=== PATIENT | female | born 1960 | race Hispanic/Latino ===

== ENCOUNTER 2018-05-06 16:26 | Inpatient (IN) | payer MEDICARE, OTHER ==
[2018-05-06 16:26] VITALS: BMI 27.6
--- NOTE | 2018-05-06 16:41 | ED PDOC ---
Arrival/HPI <Marco Carrasquillo - Last Filed: 05/06/18 21:00> - General Historian: Patient, EMS - History of Present Illness Narrative History of Present Illness (Text): 05/06/18 16:35 57 y/o female, pmh including shingles, post menopausal, psychiatric history incl uding anxiety/depression/schizoaffective, nkda, biba sister for worsening of anxiety/depression for the past couple months. Pt. stated that she is feeling very anxious and depress, no energy to do anything or clean her house, sister is very concern so she bring her to the ER for evaluation. Pt. has no homocidal or suicidal ideation, no auditory or visual hallucination, no night sweat, no rash, no dizziness, no other medical or psychological complaints. <Diallo Amaya - Last Filed: 05/06/18 21:32> - General Time Seen by Provider: 05/06/18 16:28 Past Medical History - Provider Review Nursing Documentation Reviewed: Yes - Infectious Disease Hx of Infectious Diseases: None - Tetanus Immunization Tetanus Immunization: Unknown - Past Medical History Past Medical History: No Previous - Cardiac Hx Pacemaker: No - Pulmonary Hx Respiratory Disorders: No Hx Asthma: No Hx Bronchitis: No Hx Chronic Obstructive Pulmonary Disease (COPD): No Hx Emphysema: No Hx Pneumonia: No Hx Respiratory Aspiration: No Hx Respiratory Tract Infection: No Hx Sleep Apnea: No Hx Tuberculosis: No - Neurological Hx Neurological Disorder: No Hx Alzheimer's Disease: No HX Cerebrovascular Accident: No Hx Dementia: No Hx Dizziness: No Hx Meningitis: No Hx Migraine: No Hx Parkinson's Disease: No Hx Seizures: No Hx Transient Ischemic Attacks (TIA): No - HEENT Hx HEENT Disorder: No Hx Blind: No Hx Cataracts: No Hx Deafness: No Hx Difficulty Chewing: No Hx Epistaxis: No Hx Glaucoma: No Hx Macular Degeneration: No - Renal Hx Renal Disorder: No Hx Dialysis: No Hx Kidney Stones: No Hx Neurogenic Bladder: No Hx Pyelonephritis: No Hx Renal Cancer: No Hx Renal Failure: No - Endocrine/Metabolic Hx Endocrine Disorders: No Hx Adrenal Cancer: No Hx Diabetes Insipidus: No Hx Diabetes Mellitus Type 1: No Hx Diabetes Mellitus Type 2: No Hx Hyperthyroidism: No Hx Hypothyroidism: No Hx Systemic Lupus Erythematosus: No - Hematological/Oncological Hx Blood Transfusions: No - Integumentary Hx Dermatological Disorder: No Hx Basal Cell Carcinoma: No Hx Eczema: No Hx Melanoma: No Hx Psoriasis: No Hx Squamous Cell Carcinoma: No - Musculoskeletal/Rheumatological Hx Musculoskeletal Disorders: No - Gastrointestinal Hx Gastrointestinal Disorders: No Hx Colostomy: No Hx Crohn's Disease: No Hx Diverticulitis: No Hx Gall Bladder Disease: Yes (stones in the gallbladder and had surgery) Hx Gastroesophageal Reflux: No Hx Gastrointestinal Ulcer: No Hx Ileostomy: No Hx Liver Failure: No Hx Pancreatitis: No HX Swallowing Problems: No - Genitourinary/Gynecological Hx Genitourinary Disorders: No Hx Hematuria: No Hx Incontinence: No Hx Prostate Problems: No Hx Reproductive Disorders: No Hx Sexually Transmitted Diseases: No Hx Urinary Tract Infection: No - Psychiatric Hx Emotional Abuse: No Hx Physical Abuse: No Hx Substance Use: No - Surgical History Hx Amputation: No Hx Appendectomy: No Hx Cardiac Catheterization: No Hx Cholecystectomy: Yes Hx Coronary Stent: No Hx Gastric Bypass Surgery: No Hx Hysterectomy: Yes (oopherectomy) Hx Inguinal Hernia Repair: No Hx Joint Replacement: No Hx Kidney Transplant: No Hx Liver Transplant: No Hx Mastectomy: No Hx Musculoskeletal Surgery: No Hx Open Heart Surgery: No Hx Orthopedic Surgery: No Hx Splenectomy: No Hx Valve Replacement: No - Anesthesia Hx Anesthesia Reactions: Yes ("SKIN TURNED RED") Hx Malignant Hyperthermia: No - Suicidal Assessment Feels Threatened In Home Enviroment: No <Diallo Amaya - Last Filed: 05/06/18 21:32> Family/Social History - Physician Review Nursing Documentation Reviewed: Yes Family/Social History: Unknown Family HX Smoking Status: Never Smoked Hx Alcohol Use: Yes (OCCASSIONAL) Hx Substance Use: No Hx Substance Use Treatment: No <Diallo Amaya - Last Filed: 05/06/18 21:32> Allergies/Home Meds <Marco Carrasquillo - Last Filed: 05/06/18 21:00> <Diallo Amaya - Last Filed: 05/06/18 21:32> Allergies/Adverse Reactions: Allergies No Known Allergies Allergy (Verified 05/06/18 16:57) Home Medications: Home Meds Medication Instructions Recorded Confirmed ALPRAZolam [Xanax] 1 tab PO TID 02/28/16 03/04/16 Alprazolam [Xanax] 0.5 mg PO HS 02/28/16 03/04/16 Benztropine [Cogentin] 1 tab PO BID 02/28/16 03/04/16 Cholecalciferol [Vitamin D 1000 IU] 1 tab PO DAILY 02/28/16 03/04/16 Methylphenidate [Ritalin] 1 tab PO BID 02/28/16 03/04/16 Multivit-Min/Iron/Folic/Lutein 1 tab PO DAILY 02/28/16 03/04/16 [Centrum Silver Women Tablet] Risperidone [Risperdal] 1 tab PO BID 02/28/16 03/04/16 fluvoxaMINE [Luvox] 1 tab PO Q12 02/28/16 03/04/16 Review of Systems - Review of Systems Constitutional: absent: Fatigue, Fevers Eyes: absent: Vision Changes ENT: absent: Hearing Changes Respiratory: absent: SOB Cardiovascular: absent: Chest Pain Gastrointestinal: absent: Abdominal Pain, Nausea, Vomiting Genitourinary Female: absent: Vaginal Bleeding Musculoskeletal: absent: Arthralgias, Back Pain Skin: absent: Rash, Pruritis Neurological: absent: Headache, Dizziness Hemo/Lymphatic: absent: Adenopathy Psychiatric: Anxiety, Depression. absent: Suicidal Ideation <Diallo Amaya - Last Filed: 05/06/18 21:32> Physical Exam Vital Signs Temp Pulse Resp BP Pulse Ox 05/06/18 16:52 97.7 F 94 H 18 136/77 95 <Marco Carrasquillo - Last Filed: 05/06/18 21:00> Vital Signs Reviewed: Yes Temperature: Afebrile Blood Pressure: Normal Pulse: Regular Respiratory Rate: Normal Appearance: Positive for: Well-Appearing, Non-Toxic, Comfortable Pain Distress: None Mental Status: Positive for: Alert and Oriented X 3 - Systems Exam Head: Present: Atraumatic, Normocephalic Pupils: Present: PERRL Extroacular Muscles: Present: EOMI Conjunctiva: Present: Normal Mouth: Present: Moist Mucous Membranes Neck: Present: Normal Range of Motion Respiratory/Chest: Present: Clear to Auscultation, Good Air Exchange. No: Respiratory Distress, Accessory Muscle Use Cardiovascular: Present: Regular Rate and Rhythm, Normal S1, S2. No: Murmurs Abdomen: No: Tenderness, Distention, Peritoneal Signs Back: Present: Normal Inspection Upper Extremity: Present: Normal Inspection. No: Cyanosis, Edema Lower Extremity: Present: Normal Inspection. No: Edema Neurological: Present: GCS=15, CN II-XII Intact, Speech Normal Skin: Present: Warm, Dry, Normal Color. No: Rashes Psychiatric: Present: Alert, Oriented x 3, Normal Concentration, Anxious, Depressed Mood <Diallo Amaya - Last Filed: 05/06/18 21:32> Medical Decision Making - Lab Interpretations Lab Results: 05/06/18 17:23 05/06/18 17:23 Lab Results 05/06/18 18:47: Urine Color Light yellow, Urine Appearance Clear, Urine pH 6.0, Ur Specific [place] 1.025, Urine Protein 30 H, Urine Glucose (UA) Negative, Urine Ketones Trace H, Urine Blood Negative, Urine Nitrate Negative, Urine Bilirubin Negative, Urine Urobilinogen 0.2, Ur Leukocyte Esterase Small H, Urine RBC Negative, Urine WBC 1 - 3, Ur Epithelial Cells 0 - 2, Urine Bacteria Neg 05/06/18 18:47: Urine Opiates Screen Negative, Urine Methadone Screen Negative, Ur Barbiturates Screen Negative, Ur Phencyclidine Scrn Negative, Ur Amphetamines Screen Negative, U Benzodiazepines Scrn Negative, U Oth Cocaine Metabols Negative, U Cannabinoids Screen Negative 05/06/18 17:23: WBC 8.1, RBC 5.00, Hgb 14.3, Hct 40.7, MCV 81.4, MCH 28.6, MCHC 35.1, RDW 12.6, Plt Count 202, MPV 9.7, Gran % 73.9 H, Lymph % (Auto) 18.2 L, [place] % (Auto) 6.1 H, Eos % (Auto) 1.6, Baso % (Auto) 0.2, Gran # 5.97, Lymph # (Auto) 1.5, [place] # (Auto) 0.5, Eos # (Auto) 0.1, Baso # (Auto) 0.02 05/06/18 17:23: Alcohol, Quantitative < 10 05/06/18 17:23: Sodium 141, Potassium 3.4 L, Chloride 106, Carbon Dioxide 22, Anion Gap 16, BUN 12, Creatinine 0.7, Est GFR ( Amer) > 60, Est GFR (Non- Af Amer) > 60, Random Glucose 125 H, Calcium 10.0, Total Bilirubin 0.5, AST 22, ALT 26, Alkaline Phosphatase 88, Total Protein 8.0, Albumin 4.6, Globulin 3.4, A lbumin/Globulin Ratio 1.4 05/06/18 17:23: Salicylates < 1 L, Acetaminophen < 10.0 L - RAD Interpretation Radiology Orders: 05/06/18 17:06 CHEST PORTABLE [RAD] Stat - Medication Orders Current Medication Orders: Discontinued Medications Nitrofurantoin Macrocrystals (Macrobid) 100 mg PO STAT STA; Protocol Stop: 05/06/18 18:54 Last Admin: 05/06/18 19:42 Dose: 100 mg Potassium Chloride (K-Dur 20 Meq Er Tab) 20 meq PO STAT STA Stop: 05/06/18 17:44 Last Admin: 05/06/18 18:14 Dose: 20 meq <Marco Carrasquillo - Last Filed: 05/06/18 21:00> ED Course and Treatment: 05/06/18 17:14 -Labs/ua/uds -ekg -cxr -PES paged -Observe and reassess 05/06/18 17:57 -EKG NSR @ 81 BPM, no ST elevation or depression, no T wave inversion. -Chest xray show No active disease. -Labs show no acute findings except potassium 3.4 (potassium chloride 20meq po ordered) -UA ordered and pending result -UDS ordered and pending result -Alcohol/acetaminophen/salicylate acid within normal limit. 05/06/18 18:54 -UA show +UTI, macrobid ordered 05/06/18 19:51 -UDS show no acute findings -Pt. is medically clear and stable for psychiatric evaluation. 05/06/18 21:31 -Pt. evaluated by the PES, recommend admission to Dr. Jonathan Valadez. - RAD Interpretation Radiology Orders: Date of service: 05/06/2018 HISTORY: medical clearance COMPARISON: Chest radiograph dated 09/09/2013. FINDINGS: LUNGS: No active pulmonary disease. PLEURA: No significant pleural effusion identified, no pneumothorax apparent. CARDIOVASCULAR: Normal. OSSEOUS STRUCTURES: Unchanged. VISUALIZED UPPER ABDOMEN: Right upper quadrant surgical clips. OTHER FINDINGS: None. IMPRESSION: No active disease. Telecommunications Operator: Radiologist - EKG Interpretation EKG Interpretation (Text): 05/06/18 17:29 -NSR @ 81 BPM, no ST elevation or depression, no T wave inversion. Interpreted by ED Physician: Yes Type: 12 lead EKG <Diallo Amaya - Last Filed: 05/06/18 21:32> - PA / WASTE COLLECTION DRIVER / Resident Statement EVELIA has examined the patient and agrees with the treatment plan. <Marco Carrasquillo - Last Filed: 05/06/18 21:00> - PA / WASTE COLLECTION DRIVER / Resident Statement EVELIA has reviewed & agrees with the documentation as recorded. EVELIA has examined the patient and agrees with the treatment plan. <Diallo Amaya - Last Filed: 05/06/18 21:32> Disposition/Present on Arrival <Marco Carrasquillo - Last Filed: 05/06/18 21:00> - Present on Arrival Any Indicators Present on Arrival: No History of DVT/PE: No History of Uncontrolled Diabetes: No Urinary Catheter: No History of Decub. Ulcer: No History Surgical Site Infection Following: None - Disposition Have Diagnosis and Disposition been Completed?: Yes Disposition Time: 17:46 Patient Plan: Admission <Diallo Amaya - Last Filed: 05/06/18 21:32> - Disposition Diagnosis: Hypokalemia, UTI (urinary tract infection), Major depression Disposition: HOSPITALIZED Patient Problems: Current Active Problems Problem Status Onset Hypokalemia Acute UTI (urinary tract infection) Acute Condition: STABLE Referrals: Kerline Raymundo MD [Primary Care Provider] - Follow up with primary
[2018-05-06 17:27] LABS: BASO # 0.02 K/mm3 (0.0-2.0); BASO % 0.2 % (0.0-3.0); EOS # 0.1 (0.0-0.7); EOS % 1.6 % (1.5-5.0); GRAN # 5.97 (1.4-6.5); GRAN % 73.9 % (50.0-68.0); HEMOGLOBIN 14.3 g/dL (12.0-16.0); LYMPH # 1.5 (1.2-3.4); LYMPH % 18.2 % (22.0-35.0); MEAN CELL VOLUME 81.4 fl (80.0-105.0); MEAN CORPUSCULAR HEMOGLOBIN 28.6 pg (25.0-35.0); MEAN CORPUSCULAR HGB CONC 35.1 g/dl (31.0-37.0); MEAN PLATELET VOLUME 9.7 fl (7.0-11.0); MONO # 0.5 (0.1-0.6); MONO % 6.1 % (1.0-6.0); RED CELL DISTRIBUTION WIDTH 12.6 % (11.5-14.5); WHITE BLOOD COUNT 8.1 10^3/ul (4.5-11.0)
[2018-05-06 17:39] LABS: ACETAMINOPHEN < 10.0 ug/ml (10.0-20.0); ALB/GLOB RATIO 1.4 (1.1-1.8); ALBUMIN 4.6 g/dL (3.0-4.8); ALT/SGPT 26 U/L (7-56); AST/SGOT 22 U/L (14-36); BLOOD UREA NITROGEN 12 mg/dL (7-21); GFR NON-AFRICAN AMERICAN > 60; SALICYLATE < 1 mg/dL (2.0-20.0)
--- NOTE | 2018-05-06 17:41 | RAD ---
Date of service: 05/06/2018 HISTORY: medical clearance COMPARISON: Chest radiograph dated 09/09/2013. FINDINGS: LUNGS: No active pulmonary disease. PLEURA: No significant pleural effusion identified, no pneumothorax apparent. CARDIOVASCULAR: Normal. OSSEOUS STRUCTURES: Unchanged. VISUALIZED UPPER ABDOMEN: Right upper quadrant surgical clips. OTHER FINDINGS: None. IMPRESSION: No active disease.
[2018-05-06] MEDS ORDERED: Potassium Chloride 20 mEq ER Tab PO STA (17:43)
[2018-05-06 18:53] LABS: URINE APPEARANCE CLEAR (CLEAR); URINE BILIRUBIN NEGATIVE (NEGATIVE); URINE BLOOD NEGATIVE (NEGATIVE); URINE COLOR LIGHT YELLOW (YELLOW); URINE GLUCOSE (UA) NEGATIVE (NEGATIVE); URINE LEUKOCYTE ESTERASE SMALL Leu/uL (NEGATIVE); URINE PROTEIN 30 mg/dL (<30 mg/dL); URINE UROBILINOGEN 0.2 E.U./dL (<1 E.U./dL)
[2018-05-06 18:59] LABS: URINE BACTERIA NEG (NEG); URINE EPITHELIAL CELLS 0 - 2 /hpf (0-5); URINE RBC NEGATIVE /hpf (0-2)
[2018-05-06 19:38] LABS: BARBITURATES, UR NEGATIVE (NEGATIVE); BENZODIAZEPINES, UR NEGATIVE (NEGATIVE); OPIATES, UR NEGATIVE (NEGATIVE); PHENCYCLIDINE, UR NEGATIVE (NEGATIVE)
[2018-05-07 00:08] VITALS: O2SAT 96
[2018-05-07] MEDS ORDERED: Alum-Mag Hydrox-Simethicone Susp (30 mL) PO PRN (03:38)
[2018-05-07] MEDS ORDERED: Magnesium Hydroxide Susp 30 ml UD PO PRN (03:46)
--- NOTE | 2018-05-07 04:49 | PCM.BM ---
<Betty,Kathleen - Last Filed: 05/07/18 04:46> Treatment Plan Problems - Problems identified on initial assessmt medication non-compliance Date Initiated: 05/07/18 Time Initiated: 00:30 Assessment reference: NA Status: Active Priority: 1 ineffective coping Date Initiated: 05/07/18 Time Initiated: 00:30 Assessment reference: NA Status: Active Priority: 2 social isolation Date Initiated: 05/07/18 Time Initiated: 00:30 Assessment reference: NA Status: Active Priority: 3 Self-care Deficit Date Initiated: 05/07/18 Time Initiated: 00:30 Assessment reference: NA Status: Active Priority: 4 Treatment assets and liabiliti Patient Assests: cooperative, ADL independent, physically healthy, good support system, negotiates basic needs Patient Liabilities: other - Milieu Protocol Maintain good personal hygiene: daily Encourage regular showers, daily Remind patient to perform daily oral care Maintain personal safety: every shift Educate patient to report safety concerns to staff, every shift Monitor environment for contraband/sharps Medication safety: Monitor for expected outcome, potential side effects: every shift, Assess barriers to learning: every shift, Assess readiness for medication education: every shift Discharge/Continuing Care - Education Needs Education Needs: Patient Medication, Patient Diagnosis/Disease Process, Patient Coping Skills, Patient Community resources, Patient Activities of Daily Living, Patient Health Practices/Safety, Patient Personal Hygiene/Grooming, Patient Aftercare Safety Plan <Bernice Valadez - Last Filed: 05/07/18 10:21> - Diagnosis (1) Anxiety Status: Acute Interventions: group, milieu and supportive tx * Restart Luvox 50 mg po BID and titrate to 100 mg po bid * Restart xanax 0.5 mg q8 prn: anxiety * Hold cogentin, it is unclear why patient is taking this medication * Hold ritalin at this time 05/07/18 10:21 (2) Major depression Status: Acute Interventions: group, milieu and supportive tx * Restart Luvox 50 mg po BID and titrate to 100 mg po bid * Restart xanax 0.5 mg q8 prn: anxiety * Hold cogentin, it is unclear why patient is taking this medication * Hold ritalin at this time 05/07/18 10:21 <Shahana Cordova - Last Filed: 05/09/18 16:01> Family Contact Family involvement: Family/SO is involved Family contact: Patient agrees to contact Family contact name: Kerline Avila([phone]) sister - Goals for Treatment Patient goals for treatment: To get better
[2018-05-07 09:03] LABS: GLUCOSE,FASTING 123 mg/dL (65-110); HDL CHOLESTEROL 50 mg/dL (29-60)
--- NOTE | 2018-05-07 09:05 | CARD ---
APPROVED REPORT Date of service: 05/06/2018 EKG Measurement Heart [id number] <Conclusion> Normal sinus rhythm Normal ECG No change
[2018-05-07 09:13] LABS: LDL CHOLESTEROL 125 mg/dL (0-129)
[2018-05-07 09:38] LABS: FREE T4 1.16 ng/dL (0.78-2.19)
--- NOTE | 2018-05-07 10:21 | PCM.PSYCH ---
Initial Psychiatric Evaluation - Initial Psychiatric Evaluation Type of Admission: Voluntary Legal Status: Capacity History of Present Illness and Precipitating Events: Patient is a single 57 year WF with a history of Schizoaffective Disorder, multiple prior admissions--most recently 10/2013 at [facility], under the care of Dr. Fletcher, li prescribed psychiatric medications of cogentin 0.5 mg q12 hours, Flovoxamine 100mg AM and PM, Ritalin 10mg 2x daily and Xanax prn who was was BIB sister for worsening of depression and anxiety symptoms for 1-2 months. According to the ER record, sister noticed that patient has been vegetating at home, staying in bed and not attending to food shopping, housekeeping or her grooming/hygiene since the middle of summer. Sister also noticed that patient has been more forgetful, repetitive and unfocused. During my interview this morning, patient seems well oriented to month, year, location and circumstances. She confirmed that she has been depressed and anxious. Endorses symptoms of increased crying spells, low energy, feeling overwhelmed, [place], hopeless and helpless. Sleep has also been poor. Patient denies any new stressors and indicates that she has been compliant with her psychiatric medications though si ster has doubts about this since patient has been more forgetful. Patient denies any history of suicide attempts or ideations. ER report also indicates that per sister, things started going down hill when their mother January 2015. Patient also lost a pet dog which was a hard loss for her. Sister suspects that patient has not been taking her medication due to lapses in her memory. PSYCHIATRIC HISTORY Patient had 2 prior admission to [facility] in 09/2013 and 10/2013 because of symptoms of depression, anxiety, aggression and outbursts. She was given a diagnosis of Schizoaffective disorder. Her discharge medications during 10/2013 admission include: Luvox 100 mg HS for depression and OCD symptoms Risperdal 2 mg HS for schizoaffective disorder Patient denies any history of SA. She is in outpatient treatment with Dr. Flethcer and per sister, she is prescribed cogentin 0.5 mg q12 hours, Fluvoxamine 100mg AM and PM, Ritalin 10mg 2x daily and Xanax prn Prior medication trials include: xanax, wellbutrin, and seroquel SOCIAL HISTORY Born and raised in [place]. Patient reports that she was adopted. She is single without children. She lives in a two family home with her sister. Patient is unemployed and has been disabled since the age of 24. She denies any tobacco, drug or alcohol use. Current Medications: Active Medications Generic Name Dose Route Start Last Admin Trade Name Freq PRN Reason Stop Dose Admin Acetaminophen 650 mg 05/07/18 03:35 Tylenol 325mg Tab PO Q6H PRN Pain, moderate (4-7) Al Hydrox/Mg Hydrox/Simethicone 30 ml 05/07/18 03:38 Maalox Plus 30 Ml PO DAILY PRN Indigestion / Heartburn Magnesium Hydroxide 30 ml 05/07/18 03:46 Milk Of Magnesia PO DAILY PRN Constipation Zaleplon 10 mg 05/07/18 03:33 Sonata PO HS PRN Insomnia Past Psychiatric History - Past Psychiatric History Pertinent Medical Hx (Current Medical&Sleep Prob, Allergies): Allergies Allergy/AdvReac Type Severity Reaction Status Date / Time No Known Allergies Allergy Verified 05/07/18 04:21 ALPRAZolam [Xanax] 1 tab PO TID 02/28/16 Alprazolam [Xanax] 0.5 mg PO HS 02/28/16 Benztropine [Cogentin] 1 tab PO BID 02/28/16 Cholecalciferol [Vitamin D 1000 IU] 1 tab PO DAILY 02/28/16 Methylphenidate [Ritalin] 1 tab PO BID 02/28/16 Multivit-Min/Iron/Folic/Lutein [Centrum Silver Women Tablet] 1 tab PO DAILY 02/28/16 Risperidone [Risperdal] 1 tab PO BID 02/28/16 fluvoxaMINE [Luvox] 1 tab PO Q12 02/28/16 Mental Status Examination - Personal Presentation Personal Presentation: Looks stated age - Affect Affect: Constricted, Flat - Motor Activity Motor Activity: Calm - Reliability in Providing Information Reliability in Providing Information: Poor, due to alteration in thoughts, Poor, due to altered mood - Speech Speech: Organized - Mood Mood: Depressed - Obsessions/Compulsions Obsessions: No Compulsions: No - Cognitive Functions Orientation: Person, Place, Situation Attention/Concentration: Attentive Estimate of Intelligence: Average Judgement: Imparied, as evidence by: Poor judgement, Imparied, as evidence by: Lack of insight into illness - Risk Risk: Diminished functioning - Strength & Assets Inventory Strength & Assets Inventory: Family support DSM 5 DX - DSM 5 DSM 5 Diagnosis: Schizoaffective Disorder Anxiety - Recommended/Plan of Treatment Treatment Recommendations and Plan of Treatment: * group, milieu and supportive tx * Discuss starting new medication for depression/ocd symptoms vs. restarting luvox on the unit (patient would need to take her own supply on the unit since it is not formulary). * Restart xanax 0.5 mg q8 prn: anxiety * Hold cogentin, it is unclear why patient is taking this medication * Sonata 10 mg HS prn: insomnia * Hold ritalin at this time * Awaiting medical f/u * Vitals reviewed and noted below: Selected Entries 05/07/18 05/07/18 00:07 02:16 Temperature 98.2 F 98.6 F Pulse Rate 89 68 Respiratory 17 18 Rate Blood Pressure 122/70 132/81 * Admission labs noted below: Laboratory Tests 05/06/18 05/06/18 05/06/18 17:23 17:23 17:23 WBC RBC Hgb Hct MCV MCH MCHC RDW Plt Count MPV Gran % Lymph % (Auto) Lucas % (Auto) Eos % (Auto) Baso % (Auto) Gran # Lymph # (Auto) Lucas # (Auto) Eos # (Auto) Baso # (Auto) Sodium 141 Potassium 3.4 L Chloride 106 Carbon Dioxide 22 Anion Gap 16 BUN 12 Creatinine 0.7 Est GFR ( Amer) > 60 Est GFR (Non-Af Amer) > 60 Random Glucose 125 H Fasting Glucose Calcium 10.0 Total Bilirubin 0.5 AST 22 ALT 26 Alkaline Phosphatase 88 Total Protein 8.0 Albumin 4.6 Globulin 3.4 Albumin/Globulin Ratio 1.4 Triglycerides Cholesterol LDL Cholesterol Direct HDL Cholesterol Free T4 TSH 3rd Generation Urine Color Urine Appearance Urine pH Ur Specific [place] Urine Protein Urine Glucose (UA) Urine Ketones Urine Blood Urine Nitrate Urine Bilirubin Urine Urobilinogen Ur Leukocyte Esterase Urine RBC Urine WBC Ur Epithelial Cells Urine Bacteria Salicylates < 1 L Urine Opiates Screen Urine Methadone Screen Acetaminophen < 10.0 L Ur Barbiturates Screen Ur Phencyclidine Scrn Ur Amphetamines Screen U Benzodiazepines Scrn U Oth Cocaine Metabols U Cannabinoids Screen Alcohol, Quantitative < 10 05/06/18 05/06/18 05/06/18 17:23 18:47 18:47 WBC 8.1 RBC 5.00 Hgb 14.3 Hct 40.7 MCV 81.4 MCH 28.6 MCHC 35.1 RDW 12.6 Plt Count 202 MPV 9.7 Gran % 73.9 H Lymph % (Auto) 18.2 L Lucas % (Auto) 6.1 H Eos % (Auto) 1.6 Baso % (Auto) 0.2 Gran # 5.97 Lymph # (Auto) 1.5 Lucas # (Auto) 0.5 Eos # (Auto) 0.1 Baso # (Auto) 0.02 Sodium Potassium Chloride Carbon Dioxide Anion Gap BUN Creatinine Est GFR ( Amer) Est GFR (Non-Af Amer) Random Glucose Fasting Glucose Calcium Total Bilirubin AST ALT Alkaline Phosphatase Total Protein Albumin Globulin Albumin/Globulin Ratio Triglycerides Cholesterol LDL Cholesterol Direct HDL Cholesterol Free T4 TSH 3rd Generation Urine Color Light yellow Urine Appearance Clear Urine pH 6.0 Ur Specific [place] 1.025 Urine Protein 30 H Urine Glucose (UA) Negative Urine Ketones Trace H Urine Blood Negative Urine Nitrate Negative Urine Bilirubin Negative Urine Urobilinogen 0.2 Ur Leukocyte Esterase Small H Urine RBC Negative Urine WBC 1 - 3 Ur Epithelial Cells 0 - 2 Urine Bacteria Neg Salicylates Urine Opiates Screen Negative Urine Methadone Screen Negative Acetaminophen Ur Barbiturates Screen Negative Ur Phencyclidine Scrn Negative Ur Amphetamines Screen Negative U Benzodiazepines Scrn Negative U Oth Cocaine Metabols Negative U Cannabinoids Screen Negative Alcohol, Quantitative 05/07/18 05/07/18 07:00 07:00 WBC RBC Hgb Hct MCV MCH MCHC RDW Plt Count MPV Gran % Lymph % (Auto) Lucas % (Auto) Eos % (Auto) Baso % (Auto) Gran # Lymph # (Auto) Lucas # (Auto) Eos # (Auto) Baso # (Auto) Sodium Potassium Chloride Carbon Dioxide Anion Gap BUN Creatinine Est GFR ( Amer) Est GFR (Non-Af Amer) Random Glucose Fasting Glucose 123 H Calcium Total Bilirubin AST ALT Alkaline Phosphatase Total Protein Albumin Globulin Albumin/Globulin Ratio Triglycerides 122 Cholesterol 206 H LDL Cholesterol Direct 125 HDL Cholesterol 50 Free T4 1.16 TSH 3rd Generation 0.82 Urine Color Urine Appearance Urine pH Ur Specific [place] Urine Protein Urine Glucose (UA) Urine Ketones Urine Blood Urine Nitrate Urine Bilirubin Urine Urobilinogen Ur Leukocyte Esterase Urine RBC Urine WBC Ur Epithelial Cells Urine Bacteria Salicylates Urine Opiates Screen Urine Methadone Screen Acetaminophen Ur Barbiturates Screen Ur Phencyclidine Scrn Ur Amphetamines Screen U Benzodiazepines Scrn U Oth Cocaine Metabols U Cannabinoids Screen Alcohol, Quantitative - Smoking Cessation Smoking Cessation Initiated: No
--- NOTE | 2018-05-08 06:16 | CON ---
DATE: 05/07/2018 The patient is a 57-year-old, patient of and Dr. Guadarrama. HISTORY OF PRESENT ILLNESS: The patient is a 57-year-old who was brought to emergency room by her sister because of her increasing anxiety, has been little depressed. According to sister, before she used to do her daily living chores, but lately, she has been sleeping a lot. PAST MEDICAL HISTORY: She has significant past medical history of anxiety disorder and she does complain of some epigastric discomfort off and on. ALLERGIES: SHE IS NOT ALLERGIC TO ANY MEDICATIONS. MEDICATIONS AT HOME: She is on Luvox, Risperdal twice a day, multivitamin. She is on Ritalin with vitamin D. She is on Cogentin and Xanax. SOCIAL HISTORY: She is single, lives by herself. She is disabled and lives with her sister. Denies smoking, drinking, or alcohol use. PHYSICAL EXAMINATION GENERAL: She is awake and alert, feels anxious. VITAL SIGNS: She is afebrile, pulse 92, respiration 20, blood pressure 122/63. LUNGS: Bilateral good airflow. No rhonchi or crackle. HEART: S1, S2 audible. ABDOMEN: Soft, nontender. No rebound, no guarding. NEUROLOGIC: The patient is awake, alert, oriented, communicative. LABORATORY DATA: WBC 8.1, hemoglobin 14, hematocrit 40, platelet 202. Chemistry: Sodium 141, potassium 3.4, chloride 106, CO2 of 22, BUN 12, creatinine 0.7, blood sugar of 126, cholesterol 206. Urinalysis shows small leukocyte esterase. Urine tox is negative. RPR is negative. ASSESSMENT: 1. Predominantly depression superimposed by anxiety at times. 2. Vitamin D deficiency. 3. Gastritis. 4. Generalized osteoarthritis. PLAN: Currently, the patient is stable from medical point of view. She is hypokalemic. We will follow up her chemistry. Her psych medication will be adjusted by psychiatrist. Vickey Falcon MD
[2018-05-08 09:00] LABS: FREE T4 1.07 ng/dL (0.78-2.19)
[2018-05-08 09:04] LABS: ALB/GLOB RATIO 1.3 (1.1-1.8); ALBUMIN 3.9 g/dL (3.0-4.8); ALT/SGPT 26 U/L (7-56); AST/SGOT 17 U/L (14-36); BLOOD UREA NITROGEN 21 mg/dL (7-21); CALCIUM 9.2 mg/dL (8.4-10.5); GFR NON-AFRICAN AMERICAN > 60
--- NOTE | 2018-05-08 09:57 | PCM.PYCHPN ---
Psychiatric Progress Note - Psychiatric Progress Note Patient seen today, length of contact: 25 min Problems Identified/Issues Discussed: History of Present Illness and Precipitating Events: Patient is a single 57 year WF with a history of Schizoaffective Disorder, An xiety Disorder, multiple prior admissions--most recently 10/2013 at [facility], under the care of Dr. Fletcher, li prescribed psychiatric medications of cogentin 0.5 mg q12 hours, Flovoxamine 100mg AM and PM, Ritalin 10mg 2x daily and Xanax prn who was was BIB sister for worsening of depression and anxiety symptoms for 1-2 months. According to the ER record, sister noticed that patient has been vegetating at home, staying in bed and not attending to food shopping, housekeeping or her grooming/hygiene since the middle of summer. Sister also noticed that patient has been more forgetful, repetitive and unfocused. During my interview this morning, patient seems well oriented to month, year, location and circumstances. She confirmed that she has been depressed and anxious. Endorses symptoms of increased crying spells, low energy, feeling overwhelmed, [place], hopeless and helpless. Sleep has also been poor. Patient denies any new stressors and indicates that she has been compliant with her psychiatric medications though sister has doubts about this since patient has been more forgetful. Patient denies any history of suicide attempts or ideations. ER report also indicates that per sister, things started going down hill when their mother January 2015. Patient also lost a pet dog which was a hard loss for her. Sister suspects that patient has not been taking her medication due to lapses in her memory. PSYCHIATRIC HISTORY Patient had 2 prior admission to [facility] in 09/2013 and 10/2013 because of symptoms of depression, anxiety, aggression and outbursts. She was given a diagnosis of Schizoaffective disorder. Her discharge medications during 10/2013 admission include: Luvox 100 mg HS for depression and OCD symptoms Risperdal 2 mg HS for schizoaffective disorder Patient denies any history of SA. She is in outpatient treatment with Dr. Fletcher and per sister, she is prescribed cogentin 0.5 mg q12 hours, Fluvoxamine 100mg AM and PM, Ritalin 10mg 2x daily and Xanax prn Prior medication trials include: xanax, wellbutrin, and seroquel SOCIAL HISTORY Born and raised in [place]. Patient reports that she was adopted. She is single without children. She lives in a two family home with her sister. Patient is unemployed and has been disabled since the age of 24. She denies any tobacco, drug or alcohol use. PROGRESS NOTE I reviewed recent notes and patient was interviewed at bedside again this morning. She is unkempt with constricted affect. She remembers me from our introduction and evaluation yesterday however reactivity and engagement is minimal. She reports depression but denies that it is severe or debilitating. Patient feels luvox has been very beneficial for her mood symptoms and would lik e to continue this medication. She is tolerating her other medications well and denies any new discomfort or pain. Patient remains reclusive and withdrawn on the unit. She is sleeping well and there have been no behavioral issues on the unit. Diagnostic Results: Schizoaffective Disorder Anxiety Disorder Medication Change: Yes (Requested home med luvox to be brought in) Medical Record Reviewed: Yes Mental Status Examination - Cognitive Function Orientation: Person, Place, Situation Attention: Poor Concentration: Poor Fund of Knowledge: WNL - Mood Mood: Depressed - Affect Affect: Constricted, Flat - Speech Speech: Appropriate - Formal Thought Process Formal Thought Process: No Impairment - Suicidal Ideation Suicidal Ideation: No - Homicidal Ideation Homicidal Ideation: No Goal/Treatment Plan - Goal/Treatment Plan Progress Toward Problem(s) and Goals/Treatment Plan: * group, milieu and supportive tx * Discuss starting new medication for depression/ocd symptoms vs. restarting luvox on the unit. Patient would like to c/w luvox; patient's sister will bring her home medication today so patient can continue taking it on the unit since it appears to be nonformulary. * xanax 0.5 mg q8 prn: anxiety * Hold cogentin, it is unclear why patient is taking this medication * Sonata 10 mg HS prn: insomnia * Hold ritalin at this time * Appreciate f/u by Dr. Falcon 05/07/18~patient is medically stable * Vitals reviewed and noted below: Selected Entries 05/07/18 05/07/18 07:02 16:00 Temperature 98.0 F Pulse Rate 72 80 Respiratory 20 Rate Blood Pressure 122/69 122/63 * Recent floor labs noted below: Laboratory Results - last 24 hr 05/07/18 05/08/18 05/08/18 07:00 07:00 07:00 Sodium 140 Potassium 4.0 Chloride 107 Carbon Dioxide 27 Anion Gap 11 BUN 21 Creatinine 0.6 L Est GFR ( Amer) > 60 Est GFR (Non-Af Amer) > 60 Random Glucose 127 H Calcium 9.2 Total Bilirubin 0.4 AST 17 ALT 26 Alkaline Phosphatase 74 Total Protein 6.9 Albumin 3.9 Globulin 2.9 Albumin/Globulin Ratio 1.3 Free T4 1.07 TSH 3rd Generation 0.49 RPR Nonreactive * Admission labs noted below: Laboratory Tests 05/06/18 05/06/18 05/06/18 17:23 17:23 17:23 WBC RBC Hgb Hct MCV MCH MCHC RDW Plt Count MPV Gran % Lymph % (Auto) [place] % (Auto) Eos % (Auto) Baso % (Auto) Gran # Lymph # (Auto) [place] # (Auto) Eos # (Auto) Baso # (Auto) Sodium 141 Potassium 3.4 L Chloride 106 Carbon Dioxide 22 Anion Gap 16 BUN 12 Creatinine 0.7 Est GFR ( Amer) > 60 Est GFR (Non-Af Amer) > 60 Random Glucose 125 H Fasting Glucose Calcium 10.0 Total Bilirubin 0.5 AST 22 ALT 26 Alkaline Phosphatase 88 Total Protein 8.0 Albumin 4.6 Globulin 3.4 Albumin/Globulin Ratio 1.4 Triglycerides Cholesterol LDL Cholesterol Direct HDL Cholesterol Free T4 TSH 3rd Generation Urine Color Urine Appearance Urine pH Ur Specific [place] Urine Protein Urine Glucose (UA) Urine Ketones Urine Blood Urine Nitrate Urine Bilirubin Urine Urobilinogen Ur Leukocyte Esterase Urine RBC Urine WBC Ur Epithelial Cells Urine Bacteria Salicylates < 1 L Urine Opiates Screen Urine Methadone Screen Acetaminophen < 10.0 L Ur Barbiturates Screen Ur Phencyclidine Scrn Ur Amphetamines Screen U Benzodiazepines Scrn U Oth Cocaine Metabols U Cannabinoids Screen Alcohol, Quantitative < 10 05/06/18 05/06/18 05/06/18 17:23 18:47 18:47 WBC 8.1 RBC 5.00 Hgb 14.3 Hct 40.7 MCV 81.4 MCH 28.6 MCHC 35.1 RDW 12.6 Plt Count 202 MPV 9.7 Gran % 73.9 H Lymph % (Auto) 18.2 L [place] % (Auto) 6.1 H Eos % (Auto) 1.6 Baso % (Auto) 0.2 Gran # 5.97 Lymph # (Auto) 1.5 [place] # (Auto) 0.5 Eos # (Auto) 0.1 Baso # (Auto) 0.02 Sodium Potassium Chloride Carbon Dioxide Anion Gap BUN Creatinine Est GFR ( Amer) Est GFR (Non-Af Amer) Random Glucose Fasting Glucose Calcium Total Bilirubin AST ALT Alkaline Phosphatase Total Protein Albumin Globulin Albumin/Globulin Ratio Triglycerides Cholesterol LDL Cholesterol Direct HDL Cholesterol Free T4 TSH 3rd Generation Urine Color Light yellow Urine Appearance Clear Urine pH 6.0 Ur Specific [place] 1.025 Urine Protein 30 H Urine Glucose (UA) Negative Urine Ketones Trace H Urine Blood Negative Urine Nitrate Negative Urine Bilirubin Negative Urine Urobilinogen 0.2 Ur Leukocyte Esterase Small H Urine RBC Negative Urine WBC 1 - 3 Ur Epithelial Cells 0 - 2 Urine Bacteria Neg Salicylates Urine Opiates Screen Negative Urine Methadone Screen Negative Acetaminophen Ur Barbiturates Screen Negative Ur Phencyclidine Scrn Negative Ur Amphetamines Screen Negative U Benzodiazepines Scrn Negative U Oth Cocaine Metabols Negative U Cannabinoids Screen Negative Alcohol, Quantitative 05/07/18 05/07/18 07:00 07:00 WBC RBC Hgb Hct MCV MCH MCHC RDW Plt Count MPV Gran % Lymph % (Auto) [place] % (Auto) Eos % (Auto) Baso % (Auto) Gran # Lymph # (Auto) [place] # (Auto) Eos # (Auto) Baso # (Auto) Sodium Potassium Chloride Carbon Dioxide Anion Gap BUN Creatinine Est GFR ( Amer) Est GFR (Non-Af Amer) Random Glucose Fasting Glucose 123 H Calcium Total Bilirubin AST ALT Alkaline Phosphatase Total Protein Albumin Globulin Albumin/Globulin Ratio Triglycerides 122 Cholesterol 206 H LDL Cholesterol Direct 125 HDL Cholesterol 50 Free T4 1.16 TSH 3rd Generation 0.82 Urine Color Urine Appearance Urine pH Ur Specific [place] Urine Protein Urine Glucose (UA) Urine Ketones Urine Blood Urine Nitrate Urine Bilirubin Urine Urobilinogen Ur Leukocyte Esterase Urine RBC Urine WBC Ur Epithelial Cells Urine Bacteria Salicylates Urine Opiates Screen Urine Methadone Screen Acetaminophen Ur Barbiturates Screen Ur Phencyclidine Scrn Ur Amphetamines Screen U Benzodiazepines Scrn U Oth Cocaine Metabols U Cannabinoids Screen Alcohol, Quantitative - Smoking Cessation Smoking Cessation Initiated: No
[2018-05-08] MEDS: LUVOX 100 MG PO SCH (15:49)
[2018-05-08] MEDS ORDERED: LUVOX 100 MG PO SCH (16:00)
--- NOTE | 2018-05-09 00:28 | PN ---
DATE: 05/08/2018 SUBJECTIVE: The patient is a 57-year-old, seen and examined. She is anxious. Eating and tolerating. Ambulating. complaint today. PHYSICAL EXAMINATION: VITAL SIGNS: She is afebrile, pulse 70, respirations 20, blood pressure 125/73. LUNGS: Bilateral fair airflow. No rhonchi or crackle. HEART: S1 and S2 audible. ABDOMEN: Soft, nontender. No rebound, no guarding. NEUROLOGIC: She is awake, alert, oriented, communicative. LABORATORY EXAM: Sodium 140, potassium 4, chloride 107, CO2 of 27. BUN 21, creatinine 0.6, blood sugar of 127. ASSESSMENT: 1. History of depression with anxiety in between, status post electrolyte imbalance. 2. History of gastritis. PLAN: Currently, the patient is stable from medical point of view. We will follow up. Vickey Falcon MD
[2018-05-09] MEDS: LUVOX 100 MG PO SCH ×2 (09:30→17:09)
--- NOTE | 2018-05-09 16:13 | PCM.PYCHPN ---
Psychiatric Progress Note - Psychiatric Progress Note Patient seen today, length of contact: 30min Patient Chief Complaint: "I don't know my sister spoke to " Problems Identified/Issues Discussed: Suicide/ homicide prevention, past psychiatric h/o, current psychiatric symptoms, medical problems, risk/benefits and alternatives of medications, medications compliance, coping strategies, substance abuse h/o, relapse prevention, importance of follow up with psychiatrist and therapist, discharge plan. Medical Problems: see HPI pt was seen by medical team in ED as well as Diagnostic Results: 05/06/18 17:23 05/08/18 07:00 Lab Results 05/08/18 07:00: Free T4 1.07, TSH 3rd Generation 0.49 05/08/18 07:00: Hemoglobin A1c 6.5 05/08/18 07:00: Sodium 140, Potassium 4.0, Chloride 107, Carbon Dioxide 27, Anion Gap 11, BUN 21, Creatinine 0.6 L, Est GFR ( Amer) > 60, Est GFR (Non-Af Amer) > 60, Random Glucose 127 H, Calcium 9.2, Total Bilirubin 0.4, AST 17, ALT 26, Alkaline Phosphatase 74, Total Protein 6.9, Albumin 3.9, Globulin 2.9, Albumin/Globulin Ratio 1.3 05/07/18 07:00: Fasting Glucose 123 H, Triglycerides 122, Cholesterol 206 H, LDL Cholesterol Direct 125, HDL Cholesterol 50 05/07/18 07:00: RPR Nonreactive 05/07/18 07:00: Free T4 1.16, TSH 3rd Generation 0.82 05/06/18 18:47: Urine Color Light yellow, Urine Appearance Clear, Urine pH 6.0, Ur Specific [place] 1.025, Urine Protein 30 H, Urine Glucose (UA) Negative, Urine Ketones Trace H, Urine Blood Negative, Urine Nitrate Negative, Urine Bilirubin Negative, Urine Urobilinogen 0.2, Ur Leukocyte Esterase Small H, Urine RBC Negative, Urine WBC 1 - 3, Ur Epithelial Cells 0 - 2, Urine Bacteria Neg 05/06/18 18:47: Urine Opiates Screen Negative, Urine Methadone Screen Negative, Ur Barbiturates Screen Negative, Ur Phencyclidine Scrn Negative, Ur Amphetamines Screen Negative, U Benzodiazepines Scrn Negative, U Oth Cocaine Metabols Negative, U Cannabinoids Screen Negative 05/06/18 17:23: WBC 8.1, RBC 5.00, Hgb 14.3, Hct 40.7, MCV 81.4, MCH 28.6, MCHC 35.1, RDW 12.6, Plt Count 202, MPV 9.7, Gran % 73.9 H, Lymph % (Auto) 18.2 L, [place] % (Auto) 6.1 H, Eos % (Auto) 1.6, Baso % (Auto) 0.2, Gran # 5.97, Lymph # (Auto) 1.5, [place] # (Auto) 0.5, Eos # (Auto) 0.1, Baso # (Auto) 0.02 05/06/18 17:23: Alcohol, Quantitative < 10 05/06/18 17:23: Sodium 141, Potassium 3.4 L, Chloride 106, Carbon Dioxide 22, Anion Gap 16, BUN 12, Creatinine 0.7, Est GFR ( Amer) > 60, Est GFR (Non- Af Amer) > 60, Random Glucose 125 H, Calcium 10.0, Total Bilirubin 0.5, AST 22, ALT 26, Alkaline Phosphatase 88, Total Protein 8.0, Albumin 4.6, Globulin 3.4, Albumin/Globulin Ratio 1.4 05/06/18 17:23: Salicylates < 1 L, Acetaminophen < 10.0 L Vital Signs Temp Pulse Resp BP Pulse Ox 05/09/18 15:49 79 118/68 05/09/18 07:00 97.6 F 66 20 117/68 05/09/18 06:51 97.6 F 66 20 117/68 05/08/18 16:00 88 125/73 05/08/18 07:30 97.5 F L 78 20 139/78 05/07/18 16:00 80 122/63 05/07/18 07:02 98.0 F 72 20 122/69 05/07/18 02:24 18 05/07/18 02:16 98.6 F 68 18 132/81 05/07/18 00:07 98.2 F 89 17 122/70 96 05/06/18 23:10 91 H 17 128/71 98 05/06/18 19:30 98.0 F 89 17 125/62 99 05/06/18 16:52 97.7 F 94 H 18 136/77 95 DSM 5 Symptoms Update: As per 's assessment: Patient is a single 57 year WF with a history of Schizoaffective Disorder, multiple prior admissions--most recently 10/2013 at [facility], under the care of Dr. Fletcher, prescribed psychiatric medications of cogentin 0.5 mg q12 hours, Flovoxamine 100mg AM and PM, Ritalin 10mg 2x daily and Xanax prn who was was BIB sister for worsening of depression and anxiety symptoms for 1-2 months. According to the ER record, sister noticed that patient has been vegetating at home, staying in bed and not attending to food shopping, housekeeping or her grooming/hygiene since the middle of summer. Sister also noticed that patient has been more forgetful, repetitive and unfocused. During my interview this morning, patient seems well oriented to month, year, location and circumstances. She confirmed that she has been depressed and anxious. Endorses symptoms of increased crying spells, low energy, feeling overwhelmed, [place], hopeless and helpless. Sleep has also been poor. Patient denies any new stressors and indicates that she has been compliant with her psychiatric medications though sister has doubts about this since patient has been more forgetful. Patient denies any history of suicide attempts or ideations. ER report also indicates that per sister, things started going down hill when their mother January 2015. Patient also lost a pet dog which was a hard loss for her. Sister suspects that patient has not been taking her medication due to lapses in her memory. pt was seen at the treatment team meeting, hygiene is marginal, greasy hair, fair ADLs. pt presented to be disorganized, poor historian, seems to be comfortable. pt said she is still sees in the community, she said that her sister was very concerned about her and "she talked to and he recommended me to come to the hospital". pt reported to feel very anxious and depressed, denied suicidal ideation as of now. as per h/o was on the following meds: Luvox 100 mg HS for depression and OCD symptoms "I don't know, I don't have any OCD" Risperdal 2 mg HS for schizoaffective disorder cogentin 0.5 mg q12 hours, Ritalin 10mg 2x daily Xanax prn Impression: as pe h/o schizoaffective disorder Medication Change: Yes (seroquel hs for mood and disorganized thougths) Medical Record Reviewed: Yes Consults ordered or reviewed: pt was seen by medical team Mental Status Examination - Cognitive Function Orientation: Person, Place, Situation Attention: Poor Concentration: Poor Fund of Knowledge: WNL - Mood Mood: Depressed - Affect Affect: Constricted, Flat - Speech Speech: Appropriate - Formal Thought Process Formal Thought Process: No Impairment - Suicidal Ideation Suicidal Ideation: No - Homicidal Ideation Homicidal Ideation: No Goal/Treatment Plan - Goal/Treatment Plan Need for Continued Stay: Remain at risks for inpatient hospitalization, Severe depression anxiety, Discharge may exacerbated symptoms, Severe functional impairment Progress Toward Problem(s) and Goals/Treatment Plan: Milieu/structure/supportive therapy Medical consult appreciated, see medical team note for more detailed info SW consultation for discharge plan and social issues Med management luvox resumed xanax resumed seroquel 50mg po hs for mood stabilization and disorganized thoughts Family involvement Follow up on labs Will monitor closely Pt was educated about risk/benefits and alternatives of medications, coping strategies (safety plan, suicide prevention), relapse prevention, importance of follow up with psychiatrist and therapist, stay away from drugs/alcohol/smoking Estimated Date of D/C: 05/17/18 - Smoking Cessation Smoking Cessation Initiated: No Reason for not providing: denies smoking
[2018-05-10] MEDS: LUVOX 100 MG PO SCH ×2 (10:16→16:57)
--- NOTE | 2018-05-10 16:56 | PCM.PYCHPN ---
Psychiatric Progress Note - Psychiatric Progress Note Patient seen today, length of contact: 30min Patient Chief Complaint: "I feel fine" Problems Identified/Issues Discussed: Suicide/ homicide prevention, past psychiatric h/o, current psychiatric symptoms, medical problems, risk/benefits and alternatives of medications, medications compliance, coping strategies, substance abuse h/o, relapse prevention, importance of follow up with psychiatrist and therapist, discharge plan. Medical Problems: see HPI pt was seen by medical team in ED as well as Diagnostic Results: 05/06/18 17:23 05/08/18 07:00 Lab Results 05/08/18 07:00: Free T4 1.07, TSH 3rd Generation 0.49 05/08/18 07:00: Hemoglobin A1c 6.5 05/08/18 07:00: Sodium 140, Potassium 4.0, Chloride 107, Carbon Dioxide 27, Anion Gap 11, BUN 21, Creatinine 0.6 L, Est GFR ( Amer) > 60, Est GFR (Non-Af Amer) > 60, Random Glucose 127 H, Calcium 9.2, Total Bilirubin 0.4, AST 17, ALT 26, Alkaline Phosphatase 74, Total Protein 6.9, Albumin 3.9, Globulin 2.9, Albumin/Globulin Ratio 1.3 05/07/18 07:00: Fasting Glucose 123 H, Triglycerides 122, Cholesterol 206 H, LDL Cholesterol Direct 125, HDL Cholesterol 50 05/07/18 07:00: RPR Nonreactive 05/07/18 07:00: Free T4 1.16, TSH 3rd Generation 0.82 05/06/18 18:47: Urine Color Light yellow, Urine Appearance Clear, Urine pH 6.0, Ur Specific [place] 1.025, Urine Protein 30 H, Urine Glucose (UA) Negative, Urine Ketones Trace H, Urine Blood Negative, Urine Nitrate Negative, Urine Bilirubin Negative, Urine Urobilinogen 0.2, Ur Leukocyte Esterase Small H, Urine RBC Negative, Urine WBC 1 - 3, Ur Epithelial Cells 0 - 2, Urine Bacteria Neg 05/06/18 18:47: Urine Opiates Screen Negative, Urine Methadone Screen Negative, Ur Barbiturates Screen Negative, Ur Phencyclidine Scrn Negative, Ur Amphetamines Screen Negative, U Benzodiazepines Scrn Negative, U Oth Cocaine Metabols Negative, U Cannabinoids Screen Negative 05/06/18 17:23: WBC 8.1, RBC 5.00, Hgb 14.3, Hct 40.7, MCV 81.4, MCH 28.6, MCHC 35.1, RDW 12.6, Plt Count 202, MPV 9.7, Gran % 73.9 H, Lymph % (Auto) 18.2 L, [place] % (Auto) 6.1 H, Eos % (Auto) 1.6, Baso % (Auto) 0.2, Gran # 5.97, Lymph # (Auto) 1.5, [place] # (Auto) 0.5, Eos # (Auto) 0.1, Baso # (Auto) 0.02 05/06/18 17:23: Alcohol, Quantitative < 10 05/06/18 17:23: Sodium 141, Potassium 3.4 L, Chloride 106, Carbon Dioxide 22, Anion Gap 16, BUN 12, Creatinine 0.7, Est GFR ( Amer) > 60, Est GFR (Non- Af Amer) > 60, Random Glucose 125 H, Calcium 10.0, Total Bilirubin 0.5, AST 22, ALT 26, Alkaline Phosphatase 88, Total Protein 8.0, Albumin 4.6, Globulin 3.4, Albumin/Globulin Ratio 1.4 05/06/18 17:23: Salicylates < 1 L, Acetaminophen < 10.0 L Vital Signs Temp Pulse Resp BP Pulse Ox 05/09/18 15:49 79 118/68 05/09/18 07:00 97.6 F 66 20 117/68 05/09/18 06:51 97.6 F 66 20 117/68 05/08/18 16:00 88 125/73 05/08/18 07:30 97.5 F L 78 20 139/78 05/07/18 16:00 80 122/63 05/07/18 07:02 98.0 F 72 20 122/69 05/07/18 02:24 18 05/07/18 02:16 98.6 F 68 18 132/81 05/07/18 00:07 98.2 F 89 17 122/70 96 05/06/18 23:10 91 H 17 128/71 98 05/06/18 19:30 98.0 F 89 17 125/62 99 05/06/18 16:52 97.7 F 94 H 18 136/77 95 DSM 5 Symptoms Update: Patient is a single 57 year WF with a history of Schizoaffective Disorder, multiple prior admissions--most recently 10/2013 at [facility], under the care of Dr. Fletcher, prescribed psychiatric medications of cogentin 0.5 mg q12 hours, Flovoxamine 100mg AM and PM, Ritalin 10mg 2x daily and Xanax prn who was was BIB sister for worsening of depression and anxiety symptoms for 1-2 months. According to the ER record, sister noticed that patient has been vegetating at home, staying in bed and not attending to food shopping, housekeeping or her grooming/hygiene since the middle of summer. Sister also noticed that patient has been more forgetful, repetitive and unfocused. During my interview this morning, patient seems well oriented to month, year, location and circumstances. She confirmed that she has been depressed and anxious. Endorses symptoms of increased crying spells, low energy, feeling overwhelmed, [place], hopeless and helpless. Sleep has also been poor. Patient denies any new stress and indicates that she has been compliant with her psychiatric medications though sister has doubts about this since patient has been more forgetful. Patient denies any history of suicide attempts or ideations. ER report also indicates that per sister, things started going down hill when their mother January 2015. Patient also lost a pet dog which was a hard loss for her. Sister suspects that patient has not been taking her medication due to lapses in her memory. pt was seen next to the nursing station, hygiene is marginal, greasy hair, fair ADLs. patient is oddly related, but not acutely psychotic, collateral information from patient's sister, patient was disorganized, patient was decompensating for past month, was not able to take care of herself, self isolative, apartment is a mess, see social media marketing specialist notes for more detailed information. pt presented to be disorganized, poor historian, seems to be comfortable. so far patient tolerates medications well, no side effects observed or reported, aims 0, no EPS. as per staff patient is visible in the unit, hygiene is fall from being ideal, no agitation or aggression. Impression: as pe h/o schizoaffective disorder Medication Change: Yes (seroquel was increased) Medical Record Reviewed: Yes Mental Status Examination - Cognitive Function Orientation: Person, Place, Situation Attention: Poor Concentration: Poor Fund of Knowledge: WNL - Mood Mood: Depressed - Affect Affect: Constricted, Flat - Speech Speech: Appropriate - Formal Thought Process Formal Thought Process: No Impairment - Suicidal Ideation Suicidal Ideation: No - Homicidal Ideation Homicidal Ideation: No Goal/Treatment Plan - Goal/Treatment Plan Need for Continued Stay: Remain at risks for inpatient hospitalization, Severe depression anxiety, Discharge may exacerbated symptoms, Severe functional impairment Progress Toward Problem(s) and Goals/Treatment Plan: Milieu/structure/supportive therapy Medical consult appreciated, see medical team note for more detailed info SW consultation for discharge plan and social issues Med management luvox resumed y psychiatrist on-call xanax resumed seroquel 50mg po hs for mood stabilization and disorganized thoughts Family involvement Follow up on labs Will monitor closely Pt was educated about risk/benefits and alternatives of medications, coping strategies (safety plan, suicide prevention), relapse prevention, importance of follow up with psychiatrist and therapist, stay away from drugs/alcohol/smoking Estimated Date of D/C: 05/17/18
[2018-05-11] MEDS: LUVOX 100 MG PO SCH ×2 (08:01→17:09)
--- NOTE | 2018-05-11 16:58 | PCM.PYCHPN ---
Psychiatric Progress Note - Psychiatric Progress Note Patient seen today, length of contact: 30min Patient Chief Complaint: "I feel fine, I think that I am doing alright" Problems Identified/Issues Discussed: Suicide/ homicide prevention, past psychiatric h/o, current psychiatric symptoms, medical problems, risk/benefits and alternatives of medications, medications compliance, coping strategies, substance abuse h/o, relapse prevention, importance of follow up with psychiatrist and therapist, discharge plan. Medical Problems: see HPI pt was seen by medical team in ED as well as Diagnostic Results: 05/06/18 17:23 05/08/18 07:00 Lab Results 05/08/18 07:00: Free T4 1.07, TSH 3rd Generation 0.49 05/08/18 07:00: Hemoglobin A1c 6.5 05/08/18 07:00: Sodium 140, Potassium 4.0, Chloride 107, Carbon Dioxide 27, Anion Gap 11, BUN 21, Creatinine 0.6 L, Est GFR ( Amer) > 60, Est GFR (Non-Af Amer) > 60, Random Glucose 127 H, Calcium 9.2, Total Bilirubin 0.4, AST 17, ALT 26, Alkaline Phosphatase 74, Total Protein 6.9, Albumin 3.9, Globulin 2.9, Albumin/Globulin Ratio 1.3 05/07/18 07:00: Fasting Glucose 123 H, Triglycerides 122, Cholesterol 206 H, LDL Cholesterol Direct 125, HDL Cholesterol 50 05/07/18 07:00: RPR Nonreactive 05/07/18 07:00: Free T4 1.16, TSH 3rd Generation 0.82 05/06/18 18:47: Urine Color Light yellow, Urine Appearance Clear, Urine pH 6.0, Ur Specific [place] 1.025, Urine Protein 30 H, Urine Glucose (UA) Negative, Urine Ketones Trace H, Urine Blood Negative, Urine Nitrate Negative, Urine Bilirubin Negative, Urine Urobilinogen 0.2, Ur Leukocyte Esterase Small H, Urine RBC Negative, Urine WBC 1 - 3, Ur Epithelial Cells 0 - 2, Urine Bacteria Neg 05/06/18 18:47: Urine Opiates Screen Negative, Urine Methadone Screen Negative, Ur Barbiturates Screen Negative, Ur Phencyclidine Scrn Negative, Ur Amphetamines Screen Negative, U Benzodiazepines Scrn Negative, U Oth Cocaine Metabols Negative, U Cannabinoids Screen Negative 05/06/18 17:23: WBC 8.1, RBC 5.00, Hgb 14.3, Hct 40.7, MCV 81.4, MCH 28.6, MCHC 35.1, RDW 12.6, Plt Count 202, MPV 9.7, Gran % 73.9 H, Lymph % (Auto) 18.2 L, [place] % (Auto) 6.1 H, Eos % (Auto) 1.6, Baso % (Auto) 0.2, Gran # 5.97, Lymph # (Auto) 1.5, [place] # (Auto) 0.5, Eos # (Auto) 0.1, Baso # (Auto) 0.02 05/06/18 17:23: Alcohol, Quantitative < 10 05/06/18 17:23: Sodium 141, Potassium 3.4 L, Chloride 106, Carbon Dioxide 22, Anion Gap 16, BUN 12, Creatinine 0.7, Est GFR ( Amer) > 60, Est GFR (Non- Af Amer) > 60, Random Glucose 125 H, Calcium 10.0, Total Bilirubin 0.5, AST 22, ALT 26, Alkaline Phosphatase 88, Total Protein 8.0, Albumin 4.6, Globulin 3.4, Albumin/Globulin Ratio 1.4 05/06/18 17:23: Salicylates < 1 L, Acetaminophen < 10.0 L Vital Signs Temp Pulse Resp BP Pulse Ox 05/09/18 15:49 79 118/68 05/09/18 07:00 97.6 F 66 20 117/68 05/09/18 06:51 97.6 F 66 20 117/68 05/08/18 16:00 88 125/73 05/08/18 07:30 97.5 F L 78 20 139/78 05/07/18 16:00 80 122/63 05/07/18 07:02 98.0 F 72 20 122/69 05/07/18 02:24 18 05/07/18 02:16 98.6 F 68 18 132/81 05/07/18 00:07 98.2 F 89 17 122/70 96 05/06/18 23:10 91 H 17 128/71 98 05/06/18 19:30 98.0 F 89 17 125/62 99 05/06/18 16:52 97.7 F 94 H 18 136/77 95 DSM 5 Symptoms Update: Patient is a single 57 year WF with a history of Schizoaffective Disorder, angélica griffiths prior admissions--most recently 10/2013 at [facility], under the care of Dr. Fletcher, prescribed psychiatric medications of cogentin 0.5 mg q12 hours, Flovoxamine 100mg AM and PM, Ritalin 10mg 2x daily and Xanax prn who was was BIB sister for worsening of depression and anxiety symptoms for 1-2 months. According to the ER record, sister noticed that patient has been vegetating at home, staying in bed and not attending to food shopping, housekeeping or her grooming/hygiene since the middle of summer. Sister also noticed that patient has been more forgetful, repetitive and unfocused. During my interview this morning, patient seems well oriented to month, year, location and circumstances. She confirmed that she has been depressed and anxious. Endorses symptoms of increased crying spells, low energy, feeling overwhelmed, [place], hopeless and helpless. Sleep has also been poor. Patient denies any new stress and indicates that she has been compliant with her psychiatric medications though sister has doubts about this since patient has been more forgetful. Patient denies any history of suicide attempts or ideations. ER report also indicates that per sister, things started going down hill when their mother January 2015. Patient also lost a pet dog which was a hard loss for her. Sister suspects that patient has not been taking her medication due to lapses in her memory. pt was seen next to the nursing station, hygiene is marginal, greasy hair, fair ADLs. patient is oddly related, but not acutely psychotic, at times smiles inappropriately. as per staff pt is visible in the unit, no agitation or aggression. collateral information from patient's sister, patient was disorganized, patient was decompensating for past month, was not able to take care of herself, self isolative, apartment is a mess, see addiction social worker notes for more detailed information. so far patient tolerates medications well, no side effects observed or reported, aims 0, no EPS. as per staff patient is visible in the unit, hygiene is fall from being ideal, no agitation or aggression. Impression: as pe h/o schizoaffective disorder Medication Change: Yes (seroquel was increased yesterday) Medical Record Reviewed: Yes Consults ordered or reviewed: pt was seen by medical team Mental Status Examination - Cognitive Function Orientation: Person, Place, Situation Attention: Poor Concentration: Poor Fund of Knowledge: WNL - Mood Mood: Depressed - Affect Affect: Constricted, Flat - Speech Speech: Appropriate - Formal Thought Process Formal Thought Process: No Impairment - Suicidal Ideation Suicidal Ideation: No - Homicidal Ideation Homicidal Ideation: No Goal/Treatment Plan - Goal/Treatment Plan Need for Continued Stay: Remain at risks for inpatient hospitalization, Severe depression anxiety, Discharge may exacerbated symptoms, Severe functional i mpairment Progress Toward Problem(s) and Goals/Treatment Plan: Milieu/structure/supportive therapy Medical consult appreciated, see medical team note for more detailed info SW consultation for discharge plan and social issues Med management luvox resumed y psychiatrist on-call xanax resumed seroquel 50mg po hs for mood stabilization and disorganized thoughts Family involvement Follow up on labs Will monitor closely Pt was educated about risk/benefits and alternatives of medications, coping strategies (safety plan, suicide prevention), relapse prevention, importance of follow up with psychiatrist and therapist, stay away from drugs/alcohol/smoking Estimated Date of D/C: 05/17/18
[2018-05-12] MEDS: LUVOX 100 MG PO SCH ×2 (10:54→15:59)
--- NOTE | 2018-05-12 16:57 | PCM.PYCHPN ---
Psychiatric Progress Note - Psychiatric Progress Note Patient seen today, length of contact: 30min Patient Chief Complaint: "I think I could be better, I feel very anxious" Problems Identified/Issues Discussed: Suicide/ homicide prevention, past psychiatric h/o, current psychiatric symptoms, medical problems, risk/benefits and alternatives of medications, medications compliance, coping strategies, substance abuse h/o, relapse prevention, importance of follow up with psychiatrist and therapist, discharge plan. Medical Problems: see HPI pt was seen by medical team in ED as well as Diagnostic Results: 05/06/18 17:23 05/08/18 07:00 Lab Results 05/08/18 07:00: Free T4 1.07, TSH 3rd Generation 0.49 05/08/18 07:00: Hemoglobin A1c 6.5 05/08/18 07:00: Sodium 140, Potassium 4.0, Chloride 107, Carbon Dioxide 27, Anion Gap 11, BUN 21, Creatinine 0.6 L, Est GFR ( Amer) > 60, Est GFR (Non-Af Amer) > 60, Random Glucose 127 H, Calcium 9.2, Total Bilirubin 0.4, AST 17, ALT 26, Alkaline Phosphatase 74, Total Protein 6.9, Albumin 3.9, Globulin 2.9, Albumin/Globulin Ratio 1.3 05/07/18 07:00: Fasting Glucose 123 H, Triglycerides 122, Cholesterol 206 H, LDL Cholesterol Direct 125, HDL Cholesterol 50 05/07/18 07:00: RPR Nonreactive 05/07/18 07:00: Free T4 1.16, TSH 3rd Generation 0.82 05/06/18 18:47: Urine Color Light yellow, Urine Appearance Clear, Urine pH 6.0, Ur Specific [place] 1.025, Urine Protein 30 H, Urine Glucose (UA) Negative, Urine Ketones Trace H, Urine Blood Negative, Urine Nitrate Negative, Urine Bilir ubin Negative, Urine Urobilinogen 0.2, Ur Leukocyte Esterase Small H, Urine RBC Negative, Urine WBC 1 - 3, Ur Epithelial Cells 0 - 2, Urine Bacteria Neg 05/06/18 18:47: Urine Opiates Screen Negative, Urine Methadone Screen Negative, Ur Barbiturates Screen Negative, Ur Phencyclidine Scrn Negative, Ur Amphetamines Screen Negative, U Benzodiazepines Scrn Negative, U Oth Cocaine Metabols Negative, U Cannabinoids Screen Negative 05/06/18 17:23: WBC 8.1, RBC 5.00, Hgb 14.3, Hct 40.7, MCV 81.4, MCH 28.6, MCHC 35.1, RDW 12.6, Plt Count 202, MPV 9.7, Gran % 73.9 H, Lymph % (Auto) 18.2 L, [place] % (Auto) 6.1 H, Eos % (Auto) 1.6, Baso % (Auto) 0.2, Gran # 5.97, Lymph # (Auto) 1.5, [place] # (Auto) 0.5, Eos # (Auto) 0.1, Baso # (Auto) 0.02 05/06/18 17:23: Alcohol, Quantitative < 10 05/06/18 17:23: Sodium 141, Potassium 3.4 L, Chloride 106, Carbon Dioxide 22, Anion Gap 16, BUN 12, Creatinine 0.7, Est GFR ( Amer) > 60, Est GFR (Non- Af Amer) > 60, Random Glucose 125 H, Calcium 10.0, Total Bilirubin 0.5, AST 22, ALT 26, Alkaline Phosphatase 88, Total Protein 8.0, Albumin 4.6, Globulin 3.4, Albumin/Globulin Ratio 1.4 05/06/18 17:23: Salicylates < 1 L, Acetaminophen < 10.0 L Vital Signs Temp Pulse Resp BP Pulse Ox 05/09/18 15:49 79 118/68 05/09/18 07:00 97.6 F 66 20 117/68 05/09/18 06:51 97.6 F 66 20 117/68 05/08/18 16:00 88 125/73 05/08/18 07:30 97.5 F L 78 20 139/78 05/07/18 16:00 80 122/63 05/07/18 07:02 98.0 F 72 20 122/69 05/07/18 02:24 18 05/07/18 02:16 98.6 F 68 18 132/81 05/07/18 00:07 98.2 F 89 17 122/70 96 05/06/18 23:10 91 H 17 128/71 98 05/06/18 19:30 98.0 F 89 17 125/62 99 05/06/18 16:52 97.7 F 94 H 18 136/77 95 DSM 5 Symptoms Update: Patient is a single 57 year WF with a history of Schizoaffective Disorder, multiple prior admissions--most recently 10/2013 at [facility], under the care of Dr. Fletcher, prescribed psychiatric medications of cogentin 0.5 mg q12 hours, Flovoxamine 100mg AM and PM, Ritalin 10mg 2x daily and Xanax prn who was was BIB sister for worsening of depression and anxiety symptoms for 1-2 months. According to the ER record, sister noticed that patient has been vegetating at home, staying in bed and not attending to food shopping, housekeeping or her grooming/hygiene since the middle of summer. Sister also noticed that patient has been more forgetful, repetitive and unfocused. During my interview this morning, patient seems well oriented to month, year, location and circumstances. She confirmed that she has been depressed and anxious. Endorses symptoms of increased crying spells, low energy, feeling overwhelmed, [place], hopeless and helpless. Sleep has also been poor. Patient denies any new stress and indicates that she has been compliant with her psychiatric medications though sister has doubts about this since patient has been more forgetful. Patient denies any history of suicide attempts or ideations. ER report also indicates that per sister, things started going down hill when their mother January 2015. Patient also lost a pet dog which was a hard loss for her. Sister suspects that patient has not been taking her medication due to lapses in her memory. pt was seen next to the nursing station, hygiene is marginal, greasy hair, fair ADLs. patient is oddly related, but not acutely psychotic, at times smiles inappropriately. as per staff pt is visible in the unit, no agitation or aggression. pt's psychiatrist contacted for collaterals, awaiting for a call back collateral information from patient's sister, patient was disorganized, patient was decompensating for past month, was not able to take care of herself, self isolative, apartment is a mess, see social services notes for more detailed information. so far patient tolerates medications well, no side effects observed or reported, aims 0, no EPS. as per staff patient is visible in the unit, hygiene is fall from being ideal, no agitation or aggression. Impression: as pe h/o schizoaffective disorder Medication Change: Yes (Seroquel increased, Xanax was started scheduled) Medical Record Reviewed: Yes Mental Status Examination - Cognitive Function Orientation: Person, Place, Situation Attention: Poor Concentration: Poor Fund of Knowledge: WNL - Mood Mood: Depressed, Anxious (o feel very anxious) - Affect Affect: Constricted, Flat - Speech Speech: Appropriate - Formal Thought Process Formal Thought Process: No Impairment - Suicidal Ideation Suicidal Ideation: No - Homicidal Ideation Homicidal Ideation: No Goal/Treatment Plan - Goal/Treatment Plan Need for Continued Stay: Remain at risks for inpatient hospitalization, Severe depression anxiety, Discharge may exacerbated symptoms, Severe functional impairment Progress Toward Problem(s) and Goals/Treatment Plan: Milieu/structure/supportive therapy Medical consult appreciated, see medical team note for more detailed info SW consultation for discharge plan and social issues Med management luvox resumed y psychiatrist on-call xanax 0.5 mg 3 times a day scheduled seroquel 100mg po hs for mood stabilization and disorganized thoughts Family involvement Follow up on labs Will monitor closely Pt was educated about risk/benefits and alternatives of medications, coping strategies (safety plan, suicide prevention), relapse prevention, importance of follow up with psychiatrist and therapist, stay away from drugs/alcohol/smoking Estimated Date of D/C: 05/17/18
[2018-05-13] MEDS: LUVOX 100 MG PO SCH (08:48)
--- NOTE | 2018-05-13 15:09 | PCM.PYCHPN ---
Psychiatric Progress Note - Psychiatric Progress Note Patient seen today, length of contact: 30min Patient Chief Complaint: "I am drowsy" Problems Identified/Issues Discussed: Suicide/ homicide prevention, past psychiatric h/o, current psychiatric symptoms, medical problems, risk/benefits and alternatives of medications, medications compliance, coping strategies, substance abuse h/o, relapse prevention, importance of follow up with psychiatrist and therapist, discharge plan. Medical Problems: see HPI pt was seen by medical team in ED as well as Diagnostic Results: 05/06/18 17:23 05/08/18 07:00 Lab Results 05/08/18 07:00: Free T4 1.07, TSH 3rd Generation 0.49 05/08/18 07:00: Hemoglobin A1c 6.5 05/08/18 07:00: Sodium 140, Potassium 4.0, Chloride 107, Carbon Dioxide 27, Anion Gap 11, BUN 21, Creatinine 0.6 L, Est GFR ( Amer) > 60, Est GFR (Non-Af Amer) > 60, Random Glucose 127 H, Calcium 9.2, Total Bilirubin 0.4, AST 17, ALT 26, Alkaline Phosphatase 74, Total Protein 6.9, Albumin 3.9, Globulin 2.9, Albumin/Globulin Ratio 1.3 05/07/18 07:00: Fasting Glucose 123 H, Triglycerides 122, Cholesterol 206 H, LDL Cholesterol Direct 125, HDL Cholesterol 50 05/07/18 07:00: RPR Nonreactive 05/07/18 07:00: Free T4 1.16, TSH 3rd Generation 0.82 05/06/18 18:47: Urine Color Light yellow, Urine Appearance Clear, Urine pH 6.0, Ur Specific [place] 1.025, Urine Protein 30 H, Urine Glucose (UA) Negative, Urine Ketones Trace H, Urine Blood Negative, Urine Nitrate Negative, Urine Bilirubin Negative, Urine Urobilinogen 0.2, Ur Leukocyte Esterase Small H, Urine RBC Negative, Urine WBC 1 - 3, Ur Epithelial Cells 0 - 2, Urine Bacteria Neg 05/06/18 18:47: Urine Opiates Screen Negative, Urine Methadone Screen Negative, Ur Barbiturates Screen Negative, Ur Phencyclidine Scrn Negative, Ur Amphetamines Screen Negative, U Benzodiazepines Scrn Negative, U Oth Cocaine Metabols Negative, U Cannabinoids Screen Negative 05/06/18 17:23: WBC 8.1, RBC 5.00, Hgb 14.3, Hct 40.7, MCV 81.4, MCH 28.6, MCHC 35.1, RDW 12.6, Plt Count 202, MPV 9.7, Gran % 73.9 H, Lymph % (Auto) 18.2 L, [place] % (Auto) 6.1 H, Eos % (Auto) 1.6, Baso % (Auto) 0.2, Gran # 5.97, Lymph # (Auto) 1.5, [place] # (Auto) 0.5, Eos # (Auto) 0.1, Baso # (Auto) 0.02 05/06/18 17:23: Alcohol, Quantitative < 10 05/06/18 17:23: Sodium 141, Potassium 3.4 L, Chloride 106, Carbon Dioxide 22, Anion Gap 16, BUN 12, Creatinine 0.7, Est GFR ( Amer) > 60, Est GFR (Non- Af Amer) > 60, Random Glucose 125 H, Calcium 10.0, Total Bilirubin 0.5, AST 22, ALT 26, Alkaline Phosphatase 88, Total Protein 8.0, Albumin 4.6, Globulin 3.4, Albumin/Globulin Ratio 1.4 05/06/18 17:23: Salicylates < 1 L, Acetaminophen < 10.0 L Vital Signs Temp Pulse Resp BP Pulse Ox 05/09/18 15:49 79 118/68 05/09/18 07:00 97.6 F 66 20 117/68 05/09/18 06:51 97.6 F 66 20 117/68 05/08/18 16:00 88 125/73 05/08/18 07:30 97.5 F L 78 20 139/78 05/07/18 16:00 80 122/63 05/07/18 07:02 98.0 F 72 20 122/69 05/07/18 02:24 18 05/07/18 02:16 98.6 F 68 18 132/81 05/07/18 00:07 98.2 F 89 17 122/70 96 05/06/18 23:10 91 H 17 128/71 98 05/06/18 19:30 98.0 F 89 17 125/62 99 05/06/18 16:52 97.7 F 94 H 18 136/77 95 DSM 5 Symptoms Update: Patient is a single 57 year WF with a history of Schizoaffective Disorder, multiple prior admissions--most recently 10/2013 at [facility], under the care of Dr. Fletcher, prescribed psychiatric medications of cogentin 0.5 mg q12 hours, Flovoxamine 100mg AM and PM, Ritalin 10mg 2x daily and Xanax prn who was was BIB sister for worsening of depression and anxiety symptoms for 1-2 months. According to the ER record, sister noticed that patient has been vegetating at home, staying in bed and not attending to food shopping, housekeeping or her grooming/hygiene since the middle of summer. Sister also noticed that patient has been more forgetful, repetitive and unfocused. During my interview this morning, patient seems well oriented to month, year, location and circumstances. She confirmed that she has been depressed and anxious. Endorses symptoms of increased crying spells, low energy, feeling overwhelmed, [place], hopeless and helpless. Sleep has also been poor. Patient denies any new stress and indicates that she has been compliant with her psychiatric medications though sister has doubts about this since patient has been more forgetful. Patient denies any history of suicide attempts or ideations. ER report also indicates that per sister, things started going down hill when their mother January 2015. Patient also lost a pet dog which was a hard loss for her. Sister suspects that patient has not been taking her medication due to lapses in her memory. pt was seen interval, patient appears to be up at dietetic, flat affect, sleepy, hygiene is marginal, greasy hair, fair ADLs. patient is oddly related, but not acutely psychotic, at times smiles inappropriately. as per staff pt is more isolating now, no agitation or aggression. pt's psychiatrist contacted for collaterals, awaiting for a call back collateral information from patient's sister, patient was disorganized, patient was decompensating for past month, was not able to take care of herself, self isolative, apartment is a mess, see school social worker notes for more detailed information. so far patient tolerates medications well, no side effects observed or reported, aims 0, no EPS. as per staff patient is visible in the unit, hygiene is fall from being ideal, no agitation or aggression. Impression: as pe h/o schizoaffective disorder Medication Change: No ( adjusted yesterday) Medical Record Reviewed: Yes Mental Status Examination - Cognitive Function Orientation: Person, Place, Situation Attention: Poor Concentration: Poor Fund of Knowledge: WNL - Mood Mood: Depressed, Anxious (o feel very anxious) - Affect Affect: Constricted, Flat - Speech Speech: Appropriate - Formal Thought Process Formal Thought Process: No Impairment - Suicidal Ideation Suicidal Ideation: No - Homicidal Ideation Homicidal Ideation: No Goal/Treatment Plan - Goal/Treatment Plan Need for Continued Stay: Remain at risks for inpatient hospitalization, Severe depression anxiety, Discharge may exacerbated symptoms, Severe functional impairment Progress Toward Problem(s) and Goals/Treatment Plan: Milieu/structure/supportive therapy Medical consult appreciated, see medical team note for more detailed info SW consultation for discharge plan and social issues Med management luvox resumed y psychiatrist on-call xanax 0.5 mg 3 times a day scheduled seroquel 100mg po hs for mood stabilization and disorganized thoughts contacted, left a message Family involvement Follow up on labs Will monitor closely Pt was educated about risk/benefits and alternatives of medications, coping strategies (safety plan, suicide prevention), relapse prevention, importance of follow up with psychiatrist and therapist, stay away from drugs/alcohol/smoking Estimated Date of D/C: 05/17/18
[2018-05-14] MEDS: LUVOX 100 MG PO SCH (08:34)
[2018-05-14] MEDS: FLUVOXAMINE 100 MG PO SCH (09:51)
--- NOTE | 2018-05-14 13:49 | PCM.PYCHPN ---
Psychiatric Progress Note - Psychiatric Progress Note Patient seen today, length of contact: 30min Patient Chief Complaint: "I am kind of okay" Problems Identified/Issues Discussed: Suicide/ homicide prevention, past psychiatric h/o, current psychiatric symptoms, medical problems, risk/benefits and alternatives of medications, medications compliance, coping strategies, substance abuse h/o, relapse prevention, importance of follow up with psychiatrist and therapist, discharge plan. Medical Problems: see HPI pt was seen by medical team in ED as well as Diagnostic Results: 05/06/18 17:23 05/08/18 07:00 Lab Results 05/08/18 07:00: Free T4 1.07, TSH 3rd Generation 0.49 05/08/18 07:00: Hemoglobin A1c 6.5 05/08/18 07:00: Sodium 140, Potassium 4.0, Chloride 107, Carbon Dioxide 27, Anion Gap 11, BUN 21, Creatinine 0.6 L, Est GFR ( Amer) > 60, Est GFR (Non-Af Amer) > 60, Random Glucose 127 H, Calcium 9.2, Total Bilirubin 0.4, AST 17, ALT 26, Alkaline Phosphatase 74, Total Protein 6.9, Albumin 3.9, Globulin 2.9, Albumin/Globulin Ratio 1.3 05/07/18 07:00: Fasting Glucose 123 H, Triglycerides 122, Cholesterol 206 H, LDL Cholesterol Direct 125, HDL Cholesterol 50 05/07/18 07:00: RPR Nonreactive 05/07/18 07:00: Free T4 1.16, TSH 3rd Generation 0.82 05/06/18 18:47: Urine Color Light yellow, Urine Appearance Clear, Urine pH 6.0, Ur Specific [place] 1.025, Urine Protein 30 H, Urine Glucose (UA) Negative, Urine Ketones Trace H, Urine Blood Negative, Urine Nitrate Negative, Urine Bilirubin Negative, Urine Urobilinogen 0.2, Ur Leukocyte Esterase Small H, Urine RBC Negative, Urine WBC 1 - 3, Ur Epithelial Cells 0 - 2, Urine Bacteria Neg 05/06/18 18:47: Urine Opiates Screen Negative, Urine Methadone Screen Negative, Ur Barbiturates Screen Negative, Ur Phencyclidine Scrn Negative, Ur Amphetamines Screen Negative, U Benzodiazepines Scrn Negative, U Oth Cocaine Metabols Negative, U Cannabinoids Screen Negative 05/06/18 17:23: WBC 8.1, RBC 5.00, Hgb 14.3, Hct 40.7, MCV 81.4, MCH 28.6, MCHC 35.1, RDW 12.6, Plt Count 202, MPV 9.7, Gran % 73.9 H, Lymph % (Auto) 18.2 L, [place] % (Auto) 6.1 H, Eos % (Auto) 1.6, Baso % (Auto) 0.2, Gran # 5.97, Lymph # (Auto) 1.5, [place] # (Auto) 0.5, Eos # (Auto) 0.1, Baso # (Auto) 0.02 05/06/18 17:23: Alcohol, Quantitative < 10 05/06/18 17:23: Sodium 141, Potassium 3.4 L, Chloride 106, Carbon Dioxide 22, Anion Gap 16, BUN 12, Creatinine 0.7, Est GFR ( Amer) > 60, Est GFR (Non- Af Amer) > 60, Random Glucose 125 H, Calcium 10.0, Total Bilirubin 0.5, AST 22, ALT 26, Alkaline Phosphatase 88, Total Protein 8.0, Albumin 4.6, Globulin 3.4, Albumin/Globulin Ratio 1.4 05/06/18 17:23: Salicylates < 1 L, Acetaminophen < 10.0 L Vital Signs Temp Pulse Resp BP Pulse Ox 05/09/18 15:49 79 118/68 05/09/18 07:00 97.6 F 66 20 117/68 05/09/18 06:51 97.6 F 66 20 117/68 05/08/18 16:00 88 125/73 05/08/18 07:30 97.5 F L 78 20 139/78 05/07/18 16:00 80 122/63 05/07/18 07:02 98.0 F 72 20 122/69 05/07/18 02:24 18 05/07/18 02:16 98.6 F 68 18 132/81 05/07/18 00:07 98.2 F 89 17 122/70 96 05/06/18 23:10 91 H 17 128/71 98 05/06/18 19:30 98.0 F 89 17 125/62 99 05/06/18 16:52 97.7 F 94 H 18 136/77 95 DSM 5 Symptoms Update: Patient is a single 57 year WF with a history of Schizoaffective Disorder, multiple prior admissions--most recently 10/2013 at [facility] under the care of Dr. Fletcher, prescribed psychiatric medications of cogentin 0.5 mg q12 hours, Flovoxamine 100mg AM and PM, Ritalin 10mg 2x daily and Xanax prn who was was BIB sister for worsening of depression and anxiety symptoms for 1-2 months. According to the ER record, sister noticed that patient has been vegetating at home, staying in bed and not attending to food shopping, housekeeping or her grooming/hygiene since the middle of summer. Sister also noticed that patient has been more forgetful, repetitive and unfocused. During my interview this morning, patient seems well oriented to month, year, location and circumstances. She confirmed that she has been depressed and anxious. Endorses symptoms of increased crying spells, low energy, feeling overwhelmed, [place], hopeless and helpless. Sleep has also been poor. Patient denies any new stress and indicates that she has been compliant with her psychiatric medications though sister has doubts about this since patient has been more forgetful. Patient denies any history of suicide attempts or ideations. ER report also indicates that per sister, things started going down hill when their mother January 2015. Patient also lost a pet dog which was a hard loss for her. Sister suspects that patient has not been taking her medication due to lapses in her memory. pt was seen in her room, patient appears to be sleepy, flat affect, hygiene is marginal, greasy hair, fair ADLs. patient is oddly related, but not acutely psychotic, at times smiles inappropriately. as per staff pt is more isolating now, no agitation or aggression. collateral information obtained from psychiatrist , pt known to him for the past three years, pt has h/o disorganized schizophrenia, pt's sister told pt that she is going to move to [place], pt was feeling stressed out, pt used to live in the same house all of her life it could contribute to pt's decompensation. no suicidal attempts, psychiatrist was not sure why pt was on luvox, no OCD symptoms. discussed with pt's sister Alberta, see yesterday note for more detailed info. possible intermediate placement. so far patient tolerates medications well, no side effects observed or reported, aims 0, no EPS. as per staff patient is visible in the unit, hygiene is fall from being ideal, no agitation or aggression. Impression: as pe h/o schizoaffective disorder Medication Change: Yes (Luvox decreased, Prozac started) Medical Record Reviewed: Yes Consults ordered or reviewed: pt was seen by medical team Mental Status Examination - Cognitive Function Orientation: Person, Place, Situation Attention: Poor Concentration: Poor Fund of Knowledge: WNL - Mood Mood: Depressed, Anxious (o feel very anxious) - Affect Affect: Constricted, Flat - Speech Speech: Appropriate - Formal Thought Process Formal Thought Process: No Impairment - Suicidal Ideation Suicidal Ideation: No - Homicidal Ideation Homicidal Ideation: No Goal/Treatment Plan - Goal/Treatment Plan Need for Continued Stay: Remain at risks for inpatient hospitalization, Severe depression anxiety, Discharge may exacerbated symptoms, Severe functional impairment Progress Toward Problem(s) and Goals/Treatment Plan: Milieu/structure/supportive therapy Medical consult appreciated, see medical team note for more detailed info SW consultation for discharge plan and social issues Med management luvox resumed y psychiatrist on-call xanax 0.5 mg 3 times a day scheduled seroquel 100mg po hs for mood stabilization and disorganized thoughts contacted, collaterals obtained 05/13/2018 Family involvement Follow up on labs Will monitor closely Pt was educated about risk/benefits and alternatives of medications, coping strategies (safety plan, suicide prevention), relapse prevention, importance of follow up with psychiatrist and therapist, stay away from drugs/alcohol/smoking Estimated Date of D/C: 05/17/18
[2018-05-15] MEDS: FLUVOXAMINE 100 MG PO SCH (08:51)
--- NOTE | 2018-05-15 12:44 | PCM.PYCHPN ---
Psychiatric Progress Note - Psychiatric Progress Note Patient seen today, length of contact: 30min Patient Chief Complaint: "I am kind of okay" Problems Identified/Issues Discussed: Suicide/ homicide prevention, past psychiatric h/o, current psychiatric symptoms, medical problems, risk/benefits and alternatives of medications, medications compliance, coping strategies, substance abuse h/o, relapse prevention, importance of follow up with psychiatrist and therapist, discharge plan. Medical Problems: see HPI pt was seen by medical team in ED as well as Diagnostic Results: 05/06/18 17:23 05/08/18 07:00 Lab Results 05/08/18 07:00: Free T4 1.07, TSH 3rd Generation 0.49 05/08/18 07:00: Hemoglobin A1c 6.5 05/08/18 07:00: Sodium 140, Potassium 4.0, Chloride 107, Carbon Dioxide 27, Anion Gap 11, BUN 21, Creatinine 0.6 L, Est GFR ( Amer) > 60, Est GFR (Non-Af Amer) > 60, Random Glucose 127 H, Calcium 9.2, Total Bilirubin 0.4, AST 17, ALT 26, Alkaline Phosphatase 74, Total Protein 6.9, Albumin 3.9, Globulin 2.9, Albumin/Globulin Ratio 1.3 05/07/18 07:00: Fasting Glucose 123 H, Triglycerides 122, Cholesterol 206 H, LDL Cholesterol Direct 125, HDL Cholesterol 50 05/07/18 07:00: RPR Nonreactive 05/07/18 07:00: Free T4 1.16, TSH 3rd Generation 0.82 05/06/18 18:47: Urine Color Light yellow, Urine Appearance Clear, Urine pH 6.0, Ur Specific [place] 1.025, Urine Protein 30 H, Urine Glucose (UA) Negative, Urine Ketones Trace H, Urine Blood Negative, Urine Nitrate Negative, Urine Bilirubin Negative, Urine Urobilinogen 0.2, Ur Leukocyte Esterase Small H, Urine RBC Negative, Urine WBC 1 - 3, Ur Epithelial Cells 0 - 2, Urine Bacteria Neg 05/06/18 18:47: Urine Opiates Screen Negative, Urine Methadone Screen Negative, Ur Barbiturates Screen Negative, Ur Phencyclidine Scrn Negative, Ur Amphetamines Screen Negative, U Benzodiazepines Scrn Negative, U Oth Cocaine Metabols Negative, U Cannabinoids Screen Negative 05/06/18 17:23: WBC 8.1, RBC 5.00, Hgb 14.3, Hct 40.7, MCV 81.4, MCH 28.6, MCHC 35.1, RDW 12.6, Plt Count 202, MPV 9.7, Gran % 73.9 H, Lymph % (Auto) 18.2 L, [place] % (Auto) 6.1 H, Eos % (Auto) 1.6, Baso % (Auto) 0.2, Gran # 5.97, Lymph # (Auto) 1.5, [place] # (Auto) 0.5, Eos # (Auto) 0.1, Baso # (Auto) 0.02 05/06/18 17:23: Alcohol, Quantitative < 10 05/06/18 17:23: Sodium 141, Potassium 3.4 L, Chloride 106, Carbon Dioxide 22, Anion Gap 16, BUN 12, Creatinine 0.7, Est GFR ( Amer) > 60, Est GFR (Non- Af Amer) > 60, Random Glucose 125 H, Calcium 10.0, Total Bilirubin 0.5, AST 22, ALT 26, Alkaline Phosphatase 88, Total Protein 8.0, Albumin 4.6, Globulin 3.4, Albumin/Globulin Ratio 1.4 05/06/18 17:23: Salicylates < 1 L, Acetaminophen < 10.0 L Vital Signs Temp Pulse Resp BP Pulse Ox 05/09/18 15:49 79 118/68 05/09/18 07:00 97.6 F 66 20 117/68 05/09/18 06:51 97.6 F 66 20 117/68 05/08/18 16:00 88 125/73 05/08/18 07:30 97.5 F L 78 20 139/78 05/07/18 16:00 80 122/63 05/07/18 07:02 98.0 F 72 20 122/69 05/07/18 02:24 18 05/07/18 02:16 98.6 F 68 18 132/81 05/07/18 00:07 98.2 F 89 17 122/70 96 05/06/18 23:10 91 H 17 128/71 98 05/06/18 19:30 98.0 F 89 17 125/62 99 05/06/18 16:52 97.7 F 94 H 18 136/77 95 DSM 5 Symptoms Update: Patient is a single 57 year WF with a history of Schizoaffective Disorder, multiple prior admissions--most recently 10/2013 at [facility], under the care of Dr. Fletcher, prescribed psychiatric medications of cogentin 0.5 mg q12 hours, Flovoxamine 100mg AM and PM, Ritalin 10mg 2x daily and Xanax prn who was was BIB sister for worsening of depression and anxiety symptoms for 1-2 months. According to the ER record, sister noticed that patient has been vegetating at home, staying in bed and not attending to food shopping, housekeeping or her grooming/hygiene since the middle of summer. Sister also noticed that patient has been more forgetful, repetitive and unfocused. During my interview this morning, patient seems well oriented to month, year, location and circumstances. She confirmed that she has been depressed and anxious. Endorses symptoms of increased crying spells, low energy, feeling overwhelmed, [place], hopeless and helpless. Sleep has also been poor. Patient denies any new stress and indicates that she has been compliant with her psychiatric medications though sister has doubts about this since patient has been more forgetful. Patient denies any history of suicide attempts or ideations. ER report also indicates that per sister, things started going down hill when their mother January 2015. Patient also lost a pet dog which was a hard loss for her. Sister suspects that patient has not been taking her medication due to lapses in her memory. pt was seen in her room, patient appears to be sleepy, flat affect, hygiene is marginal, greasy hair, fair ADLs. as per staff patient is apathetic, not interested in unit activities, always in bed. patient is oddly related, but not acutely psychotic, at times smiles inappropriately. as per staff pt is more isolating now, no agitation or aggression. collateral information obtained from psychiatrist , pt known to him for the past three years, pt has h/o disorganized schizophrenia, pt's sister told pt that she is going to move to [place], pt was feeling stressed out, pt used to live in the same house all of her life it could contribute to pt's decompensation. no suicidal attempts, psychiatrist was not sure why pt was on luvox, no OCD symptoms. discussed with pt's sister Alberta, see SW note for more detailed info. possible shelter placement. so far patient tolerates medications well, no side effects observed or reported, aims 0, no EPS. as per staff patient is visible in the unit, hygiene is fall from being ideal, no agitation or aggression. Impression: as pe h/o schizoaffective disorder Medication Change: Yes (luvox d/c) Medical Record Reviewed: Yes Mental Status Examination - Cognitive Function Orientation: Person, Place, Situation Attention: Poor Concentration: Poor Fund of Knowledge: WNL - Mood Mood: Depressed, Anxious (o feel very anxious) - Affect Affect: Constricted, Flat - Speech Speech: Appropriate - Formal Thought Process Formal Thought Process: No Impairment - Suicidal Ideation Suicidal Ideation: No - Homicidal Ideation Homicidal Ideation: No Goal/Treatment Plan - Goal/Treatment Plan Need for Continued Stay: Remain at risks for inpatient hospitalization, Severe depression anxiety, Discharge may exacerbated symptoms, Severe functional impairment Progress Toward Problem(s) and Goals/Treatment Plan: Milieu/structure/supportive therapy Medical consult appreciated, see medical team note for more detailed info consultation for discharge plan and social issues Med management prozac 20mg po daily for depression/anxiety luvox d/ c xanax 0.5 mg 3 times a day scheduled seroquel 100mg po hs for mood stabilization and disorganized thoughts contacted, collaterals obtained 05/13/2018 Family involvement Follow up on labs Will monitor closely Pt was educated about risk/benefits and alternatives of medications, coping strategies (safety plan, suicide prevention), relapse prevention, importance of follow up with psychiatrist and therapist, stay away from drugs/alcohol/smoking Estimated Date of D/C: 05/17/18
--- NOTE | 2018-05-16 23:26 | PN ---
DATE: 05/16/[address] Goldsmith. Chart reviewed and case discussed with staff. SUBJECTIVE: The patient is a 57-year-old white female with a prior diagnosis of schizoaffective disorder who has had multiple prior psychiatric admissions. She had been hospitalized in 10/2013 at [facility] at which time she was prescribed Cogentin, Luvox, Ritalin and Xanax p.r.n. She has presently undergone a worsening of her symptoms of depression and anxiety for the past 1-2 months. The patient reportedly had been isolating at home, staying in bed and not taken care of activities such as cooking, shopping and personal hygiene. She reportedly had also become more forgetful and unfocused. However, she seems to have improved during her hospital stay here according to notes, (but appeared to be unfocused as I interviewed her today). The patient did admit to feeling tearful, anergic, feeling saldivar, overwhelmed, hopeless and helpless with impaired sleep. She insisted that she had been compliant with her psychotropic medication; though her sister reportedly had doubts about this. She reportedly did not have a history of suicide attempts or ideation. Sister reported that she had become more depressed since the of her mother and 01/2015 and the loss of a dog about that same time. The patient has been under the recent psychiatric care of Dr. Fletcher, who reports that she has had a history of a disorganized schizophrenia. Another stressor was that the patient was planning on moving to [place], where she has been living in the same house her entire life. The patient appears somewhat withdrawn, but is alert and oriented to three spheres, but seems lack of focus. Her insight and judgment are considered to be poor as is her level of motivation such that she needs encouragement to perform ADLs. She is being maintained here on Prozac 20 mg daily, Seroquel 100 mg at bedtime, Sonata p.r.n., Xanax 0.5 mg b.i.d. Her laboratory values were reviewed as were her vital signs. Tesfaye Tineo MD/ PhD [facility] # [id number]
--- NOTE | 2018-05-17 16:02 | PCM.PYCHPN ---
Psychiatric Progress Note - Psychiatric Progress Note Patient seen today, length of contact: 30min Patient Chief Complaint: "I m doing little better" Problems Identified/Issues Discussed: Suicide/ homicide prevention, past psychiatric h/o, current psychiatric symptoms, medical problems, risk/benefits and alternatives of medications, medications compliance, coping strategies, substance abuse h/o, relapse prevention, importance of follow up with psychiatrist and therapist, discharge plan. Medical Problems: see HPI pt was seen by medical team in ED as well as Diagnostic Results: 05/06/18 17:23 05/08/18 07:00 Lab Results 05/08/18 07:00: Free T4 1.07, TSH 3rd Generation 0.49 05/08/18 07:00: Hemoglobin A1c 6.5 05/08/18 07:00: Sodium 140, Potassium 4.0, Chloride 107, Carbon Dioxide 27, Anion Gap 11, BUN 21, Creatinine 0.6 L, Est GFR ( Amer) > 60, Est GFR (Non-Af Amer) > 60, Random Glucose 127 H, Calcium 9.2, Total Bilirubin 0.4, AST 17, ALT 26, Alkaline Phosphatase 74, Total Protein 6.9, Albumin 3.9, Globulin 2.9, Albumin/Globulin Ratio 1.3 05/07/18 07:00: Fasting Glucose 123 H, Triglycerides 122, Cholesterol 206 H, LDL Cholesterol Direct 125, HDL Cholesterol 50 05/07/18 07:00: RPR Nonreactive 05/07/18 07:00: Free T4 1.16, TSH 3rd Generation 0.82 05/06/18 18:47: Urine Color Light yellow, Urine Appearance Clear, Urine pH 6.0, Ur Specific [place] 1.025, Urine Protein 30 H, Urine Glucose (UA) Negative, Urine Ketones Trace H, Urine Blood Negative, Urine Nitrate Negative, Urine Bilirubin Negative, Urine Urobilinogen 0.2, Ur Leukocyte Esterase Small H, Urine RBC Negative, Urine WBC 1 - 3, Ur Epithelial Cells 0 - 2, Urine Bacteria Neg 05/06/18 18:47: Urine Opiates Screen Negative, Urine Methadone Screen Negative, Ur Barbiturates Screen Negative, Ur Phencyclidine Scrn Negative, Ur Amphetamines Screen Negative, U Benzodiazepines Scrn Negative, U Oth Cocaine Metabols Negative, U Cannabinoids Screen Negative 05/06/18 17:23: WBC 8.1, RBC 5.00, Hgb 14.3, Hct 40.7, MCV 81.4, MCH 28.6, MCHC 35.1, RDW 12.6, Plt Count 202, MPV 9.7, Gran % 73.9 H, Lymph % (Auto) 18.2 L, [place] % (Auto) 6.1 H, Eos % (Auto) 1.6, Baso % (Auto) 0.2, Gran # 5.97, Lymph # (Auto) 1.5, [place] # (Auto) 0.5, Eos # (Auto) 0.1, Baso # (Auto) 0.02 05/06/18 17:23: Alcohol, Quantitative < 10 05/06/18 17:23: Sodium 141, Potassium 3.4 L, Chloride 106, Carbon Dioxide 22, Anion Gap 16, BUN 12, Creatinine 0.7, Est GFR ( Amer) > 60, Est GFR (Non- Af Amer) > 60, Random Glucose 125 H, Calcium 10.0, Total Bilirubin 0.5, AST 22, ALT 26, Alkaline Phosphatase 88, Total Protein 8.0, Albumin 4.6, Globulin 3.4, Albumin/Globulin Ratio 1.4 05/06/18 17:23: Salicylates < 1 L, Acetaminophen < 10.0 L Vital Signs Temp Pulse Resp BP Pulse Ox 05/09/18 15:49 79 118/68 05/09/18 07:00 97.6 F 66 20 117/68 05/09/18 06:51 97.6 F 66 20 117/68 05/08/18 16:00 88 125/73 05/08/18 07:30 97.5 F L 78 20 139/78 05/07/18 16:00 80 122/63 05/07/18 07:02 98.0 F 72 20 122/69 05/07/18 02:24 18 05/07/18 02:16 98.6 F 68 18 132/81 05/07/18 00:07 98.2 F 89 17 122/70 96 05/06/18 23:10 91 H 17 128/71 98 05/06/18 19:30 98.0 F 89 17 125/62 99 05/06/18 16:52 97.7 F 94 H 18 136/77 95 DSM 5 Symptoms Update: Patient is a single 57 year WF with a history of Schizoaffective Disorder, multiple prior admissions--most recently 10/2013 at [facility], under the care of Dr. Fletcher, prescribed psychiatric medications of cogentin 0.5 mg q12 hours, Flovoxamine 100mg AM and PM, Ritalin 10mg 2x daily and Xanax prn who was was BIB sister for worsening of depression and anxiety symptoms for 1-2 months. According to the ER record, sister noticed that patient has been vegetating at home, staying in bed and not attending to food shopping, housekeeping or her grooming/hygiene since the middle of summer. Sister also noticed that patient has been more forgetful, repetitive and unfocused. During my interview this morning, patient seems well oriented to month, year, location and circumstances. She confirmed that she has been depressed and anxious. Endorses symptoms of increased crying spells, low energy, feeling overwhelmed, [place], hopeless and helpless. Sleep has also been poor. Patient denies any new stress and indicates that she has been compliant with her psychiatric medications though sister has doubts about this since patient has been more forgetful. Patient denies any history of suicide attempts or ideations. ER report also indicates that per sister, things started going down hill when their mother January 2015. Patient also lost a pet dog which was a hard loss for her. Sister suspects that patient has not been taking her medication due to lapses in her memory. pt was seen next to the nursing station, today it was the first day when patient is visible in the unit, patient tolerated discontinuation of Luvox well, patient likes Prozac, patient was willing to increase the dose today. patient appears to be less depressed, improved personal hygiene. as per staff pt is more isolating now, no agitation or aggression. so far patient tolerates medications well, no side effects observed or reported, aims 0, no EPS. Impression: as pe h/o schizoaffective disorder Medication Change: Yes (Prozac increased) Medical Record Reviewed: Yes Mental Status Examination - Cognitive Function Orientation: Person, Place, Situation Attention: Poor Concentration: Poor Fund of Knowledge: WNL - Mood Mood: Depressed ("I feel better"), Anxious (less anxious) - Affect Affect: Constricted (but more reactive today) - Speech Speech: Appropriate - Formal Thought Process Formal Thought Process: No Impairment - Suicidal Ideation Suicidal Ideation: No - Homicidal Ideation Homicidal Ideation: No Goal/Treatment Plan - Goal/Treatment Plan Need for Continued Stay: Remain at risks for inpatient hospitalization, Severe depression anxiety, Discharge may exacerbated symptoms, Severe functional impairment Progress Toward Problem(s) and Goals/Treatment Plan: Milieu/structure/supportive therapy Medical consult appreciated, see medical team note for more detailed info SW consultation for discharge plan and social issues Med management prozac 30mg po daily for depression/anxiety luvox d/ c xanax 0.5 mg 3 times a day scheduled seroquel 100mg po hs for mood stabilization and disorganized thoughts contacted, collaterals obtained 05/13/2018 Family involvement Follow up on labs Will monitor closely Pt was educated about risk/benefits and alternatives of medications, coping strategies (safety plan, suicide prevention), relapse prevention, importance of follow up with psychiatrist and therapist, stay away from drugs/alcohol/smoking Estimated Date of D/C: 05/20/18
[2018-05-18 07:16] VITALS: RESP 20
--- NOTE | 2018-05-18 17:14 | PCM.PYCHPN ---
Psychiatric Progress Note - Psychiatric Progress Note Patient seen today, length of contact: 30min Patient Chief Complaint: "I m doing little better" Problems Identified/Issues Discussed: Suicide/ homicide prevention, past psychiatric h/o, current psychiatric symptoms, medical problems, risk/benefits and alternatives of medications, medications compliance, coping strategies, substance abuse h/o, relapse prevention, importance of follow up with psychiatrist and therapist, discharge plan. Medical Problems: see HPI pt was seen by medical team in ED as well as Diagnostic Results: 05/06/18 17:23 05/08/18 07:00 Lab Results 05/08/18 07:00: Free T4 1.07, TSH 3rd Generation 0.49 05/08/18 07:00: Hemoglobin A1c 6.5 05/08/18 07:00: Sodium 140, Potassium 4.0, Chloride 107, Carbon Dioxide 27, Anion Gap 11, BUN 21, Creatinine 0.6 L, Est GFR ( Amer) > 60, Est GFR (Non-Af Amer) > 60, Random Glucose 127 H, Calcium 9.2, Total Bilirubin 0.4, AST 17, ALT 26, Alkaline Phosphatase 74, Total Protein 6.9, Albumin 3.9, Globulin 2.9, Albumin/Globulin Ratio 1.3 05/07/18 07:00: Fasting Glucose 123 H, Triglycerides 122, Cholesterol 206 H, LDL Cholesterol Direct 125, HDL Cholesterol 50 05/07/18 07:00: RPR Nonreactive 05/07/18 07:00: Free T4 1.16, TSH 3rd Generation 0.82 05/06/18 18:47: Urine Color Light yellow, Urine Appearance Clear, Urine pH 6.0, Ur Specific [place] 1.025, Urine Protein 30 H, Urine Glucose (UA) Negative, Urine Ketones Trace H, Urine Blood Negative, Urine Nitrate Negative, Urine Bilirubin Negative, Urine Urobilinogen 0.2, Ur Leukocyte Esterase Small H, Urine RBC Negative, Urine WBC 1 - 3, Ur Epithelial Cells 0 - 2, Urine Bacteria Neg 05/06/18 18:47: Urine Opiates Screen Negative, Urine Methadone Screen Negative, Ur Barbiturates Screen Negative, Ur Phencyclidine Scrn Negative, Ur Amphetamines Screen Negative, U Benzodiazepines Scrn Negative, U Oth Cocaine Metabols Negative, U Cannabinoids Screen Negative 05/06/18 17:23: WBC 8.1, RBC 5.00, Hgb 14.3, Hct 40.7, MCV 81.4, MCH 28.6, MCHC 35.1, RDW 12.6, Plt Count 202, MPV 9.7, Gran % 73.9 H, Lymph % (Auto) 18.2 L, [place] % (Auto) 6.1 H, Eos % (Auto) 1.6, Baso % (Auto) 0.2, Gran # 5.97, Lymph # (Auto) 1.5, [place] # (Auto) 0.5, Eos # (Auto) 0.1, Baso # (Auto) 0.02 05/06/18 17:23: Alcohol, Quantitative < 10 05/06/18 17:23: Sodium 141, Potassium 3.4 L, Chloride 106, Carbon Dioxide 22, Anion Gap 16, BUN 12, Creatinine 0.7, Est GFR ( Amer) > 60, Est GFR (Non- Af Amer) > 60, Random Glucose 125 H, Calcium 10.0, Total Bilirubin 0.5, AST 22, ALT 26, Alkaline Phosphatase 88, Total Protein 8.0, Albumin 4.6, Globulin 3.4, Albumin/Globulin Ratio 1.4 05/06/18 17:23: Salicylates < 1 L, Acetaminophen < 10.0 L Vital Signs Temp Pulse Resp BP Pulse Ox 05/09/18 15:49 79 118/68 05/09/18 07:00 97.6 F 66 20 117/68 05/09/18 06:51 97.6 F 66 20 117/68 05/08/18 16:00 88 125/73 05/08/18 07:30 97.5 F L 78 20 139/78 05/07/18 16:00 80 122/63 05/07/18 07:02 98.0 F 72 20 122/69 05/07/18 02:24 18 05/07/18 02:16 98.6 F 68 18 132/81 05/07/18 00:07 98.2 F 89 17 122/70 96 05/06/18 23:10 91 H 17 128/71 98 05/06/18 19:30 98.0 F 89 17 125/62 99 05/06/18 16:52 97.7 F 94 H 18 136/77 95 DSM 5 Symptoms Update: Patient is a single 57 year WF with a history of Schizoaffective Disorder, multiple prior admissions--most recently 10/2013 at [facility], under the care of Dr. Fletcher, prescribed psychiatric medications of cogentin 0.5 mg q12 hours, Flovoxamine 100mg AM and PM, Ritalin 10mg 2x daily and Xanax prn who was was BIB sister for worsening of depression and anxiety symptoms for 1-2 months. According to the ER record, sister noticed that patient has been vegetating at home, staying in bed and not attending to food shopping, housekeeping or her grooming/hygiene since the middle of summer. Sister also noticed that patient has been more forgetful, repetitive and unfocused. During my interview this morning, patient seems well oriented to month, year, location and circumstances. She confirmed that she has been depressed and anxious. Endorses symptoms of increased crying spells, low energy, feeling overwhelmed, [place], hopeless and helpless. Sleep has also been poor. Patient denies any new stress and indicates that she has been compliant with her psychiatric medications though sister has doubts about this since patient has been more forgetful. Patient denies any history of suicide attempts or ideations. ER report also indicates that per sister, things started going down hill when their mother January 2015. Patient also lost a pet dog which was a hard loss for her. Sister suspects that patient has not been taking her medication due to lapses in her memory. pt was seen next the treatment team meeting, hygiene is improving, patient presented to be with improvement of her affect which seems to be more reactive, patient reported that "I feel little better", patient is more visible in the unit, took a shower. patient appears to be less depressed, improved personal hygiene. as per staff pt is more isolating now, no agitation or aggression. so far patient tolerates medications well, no side effects observed or reported, aims 0, no EPS. Impression: as pe h/o schizoaffective disorder Medication Change: Yes (Prozac increased) Medical Record Reviewed: Yes Mental Status Examination - Cognitive Function Orientation: Person, Place, Situation Attention: Poor Concentration: Poor Fund of Knowledge: WNL - Mood Mood: Depressed ("I feel better"), Anxious (less anxious) - Affect Affect: Constricted (but more reactive today) - Speech Speech: Appropriate - Formal Thought Process Formal Thought Process: No Impairment - Suicidal Ideation Suicidal Ideation: No - Homicidal Ideation Homicidal Ideation: No Goal/Treatment Plan - Goal/Treatment Plan Need for Continued Stay: Remain at risks for inpatient hospitalization, Severe depression anxiety, Discharge may exacerbated symptoms, Severe functional impairment Progress Toward Problem(s) and Goals/Treatment Plan: Milieu/structure/supportive therapy Medical consult appreciated, see medical team note for more detailed info SW consultation for discharge plan and social issues Med management prozac 40mg po daily for depression/anxiety luvox d/ c xanax 0.5 mg 3 times a day scheduled seroquel 100mg po hs for mood stabilization and disorganized thoughts contacted, collaterals obtained 05/13/2018 Family involvement Follow up on labs Will monitor closely Pt was educated about risk/benefits and alternatives of medications, coping strategies (safety plan, suicide prevention), relapse prevention, importance of follow up with psychiatrist and therapist, stay away from drugs/alcohol/smoking Estimated Date of D/C: 05/20/18
--- NOTE | 2018-05-19 12:11 | PCM.BM ---
<Shahana Cordova Y - Last Filed: 05/19/18 12:11> Treatment Plan Problems - Problems identified on initial assessmt medication non-compliance Date Initiated: 05/07/18 Time Initiated: 00:30 Assessment reference: NA Status: Active Priority: 1 ineffective coping Date Initiated: 05/07/18 Time Initiated: 00:30 Assessment reference: NA Status: Active Priority: 2 social isolation Date Initiated: 05/07/18 Time Initiated: 00:30 Assessment reference: NA Status: Active Priority: 3 Self-care Deficit Date Initiated: 05/07/18 Time Initiated: 00:30 Assessment reference: NA Status: Active Priority: 4 Treatment assets and liabiliti Patient Assests: cooperative, ADL independent, physically healthy, good support system, negotiates basic needs Patient Liabilities: other - Milieu Protocol Maintain good personal hygiene: daily Encourage regular showers, daily Remind patient to perform daily oral care Maintain personal safety: every shift Educate patient to report safety concerns to staff, every shift Monitor environment for contraband/sharps Medication safety: Monitor for expected outcome, potential side effects: every shift, Assess barriers to learning: every shift, Assess readiness for medication education: every shift Milieu Narrative: Milieu/structure/supportive therapy Medical consult appreciated, see medical team note for more detailed info SW consultation for discharge plan and social issues Med management prozac 40mg po daily for depression/anxiety luvox d/ c xanax 0.5 mg 3 times a day scheduled seroquel 100mg po hs for mood stabilization and disorganized thoughts contacted, collaterals obtained 05/13/2018 Family involvement Follow up on labs Will monitor closely Pt was educated about risk/benefits and alternatives of medications, coping strategies (safety plan, suicide prevention), relapse prevention, importance of follow up with psychiatrist and therapist, stay away from drugs/alcohol/smoking Family Contact Family contact: Patient agrees to contact Family contact name: Kerline Avila([phone]) sister - Outside Agency Dr. Ran Fletcher Care involvment: Information-sharing Agency contact name: Dr. Ran Fletcher - Goals for Treatment Patient goals for treatment: To get better Discharge/Continuing Care - Education Needs Education Needs: Patient Medication, Patient Diagnosis/Disease Process, Patient Coping Skills, Patient Community resources, Patient Activities of Daily Living, Patient Health Practices/Safety, Patient Personal Hygiene/Grooming, Patient Aftercare Safety Plan - Treatment Team Participation Patient/Family/SO Statement: Milieu/structure/supportive therapy Medical consult appreciated, see medical team note for more detailed info SW consultation for discharge plan and social issues Med management prozac 40mg po daily for depression/anxiety luvox d/ c xanax 0.5 mg 3 times a day scheduled seroquel 100mg po hs for mood stabilization and disorganized thoughts contacted, collaterals obtained 05/13/2018 Family involvement Follow up on labs Will monitor closely Pt was educated about risk/benefits and alternatives of medications, coping strategies (safety plan, suicide prevention), relapse prevention, importance of follow up with psychiatrist and therapist, stay away from drugs/alcohol/smoking Treatment Plan Review - Problem medication non-compliance Time Initiated: 00:30 ineffective coping Time Initiated: 00:30 social isolation Time Initiated: 00:30 Self-care Deficit Time Initiated: 00:30 <Shelbie Goldsmith - Last Filed: 05/20/18 15:03> - Diagnosis (1) Major depression Status: Acute Interventions: pt is doing better no SI, no HI, more active 05/19/18 14:54 (2) Psychosis Status: Acute Interventions: 05/19/18 14:54 Psychoeducation/psychotherapy Psychopharmacology/adjustment of medications as needed/ monitoring possible side effects Evaluate pt on daily basis Compliance with medications and follow up appointments Long acting medication if pt is noncompliant with pill form Suicide and homicide risk assessment and prevention, coping strategies, safety plan Relapse prevention Reduction of symptoms Improve functional status Possible assertive community treatment Cognitive behavioral therapy Family involvement Possible social skill training as outpatient
--- NOTE | 2018-05-19 14:58 | PCM.PYCHPN ---
Psychiatric Progress Note - Psychiatric Progress Note Patient seen today, length of contact: 30min Patient Chief Complaint: "I am feeling much better, I'm less depressed' Problems Identified/Issues Discussed: Suicide/ homicide prevention, past psychiatric h/o, current psychiatric symptoms, medical problems, risk/benefits and alternatives of medications, medications compliance, coping strategies, substance abuse h/o, relapse prevention, importance of follow up with psychiatrist and therapist, discharge plan. Medical Problems: see HPI pt was seen by medical team in ED as well as Diagnostic Results: 05/06/18 17:23 05/08/18 07:00 Lab Results 05/08/18 07:00: Free T4 1.07, TSH 3rd Generation 0.49 05/08/18 07:00: Hemoglobin A1c 6.5 05/08/18 07:00: Sodium 140, Potassium 4.0, Chloride 107, Carbon Dioxide 27, Anion Gap 11, BUN 21, Creatinine 0.6 L, Est GFR ( Amer) > 60, Est GFR (Non-Af Amer) > 60, Random Glucose 127 H, Calcium 9.2, Total Bilirubin 0.4, AST 17, ALT 26, Alkaline Phosphatase 74, Total Protein 6.9, Albumin 3.9, Globulin 2.9, Albumin/Globulin Ratio 1.3 05/07/18 07:00: Fasting Glucose 123 H, Triglycerides 122, Cholesterol 206 H, LDL Cholesterol Direct 125, HDL Cholesterol 50 05/07/18 07:00: RPR Nonreactive 05/07/18 07:00: Free T4 1.16, TSH 3rd Generation 0.82 05/06/18 18:47: Urine Color Light yellow, Urine Appearance Clear, Urine pH 6.0, Ur Specific [place] 1.025, Urine Protein 30 H, Urine Glucose (UA) Negative, Urine Ketones Trace H, Urine Blood Negative, Urine Nitrate Negative, Urine Bilirubin Negative, Urine Urobilinogen 0.2, Ur Leukocyte Esterase Small H, Urine RBC Negative, Urine WBC 1 - 3, Ur Epithelial Cells 0 - 2, Urine Bacteria Neg 05/06/18 18:47: Urine Opiates Screen Negative, Urine Methadone Screen Negative, Ur Barbiturates Screen Negative, Ur Phencyclidine Scrn Negative, Ur Amphetamines Screen Negative, U Benzodiazepines Scrn Negative, U Oth Cocaine Metabols Negative, U Cannabinoids Screen Negative 05/06/18 17:23: WBC 8.1, RBC 5.00, Hgb 14.3, Hct 40.7, MCV 81.4, MCH 28.6, MCHC 35.1, RDW 12.6, Plt Count 202, MPV 9.7, Gran % 73.9 H, Lymph % (Auto) 18.2 L, [place] % (Auto) 6.1 H, Eos % (Auto) 1.6, Baso % (Auto) 0.2, Gran # 5.97, Lymph # (Auto) 1.5, [place] # (Auto) 0.5, Eos # (Auto) 0.1, Baso # (Auto) 0.02 05/06/18 17:23: Alcohol, Quantitative < 10 05/06/18 17:23: Sodium 141, Potassium 3.4 L, Chloride 106, Carbon Dioxide 22, Anion Gap 16, BUN 12, Creatinine 0.7, Est GFR ( Amer) > 60, Est GFR (Non- Af Amer) > 60, Random Glucose 125 H, Calcium 10.0, Total Bilirubin 0.5, AST 22, ALT 26, Alkaline Phosphatase 88, Total Protein 8.0, Albumin 4.6, Globulin 3.4, Albumin/Globulin Ratio 1.4 05/06/18 17:23: Salicylates < 1 L, Acetaminophen < 10.0 L Vital Signs Temp Pulse Resp BP Pulse Ox 05/09/18 15:49 79 118/68 05/09/18 07:00 97.6 F 66 20 117/68 05/09/18 06:51 97.6 F 66 20 117/68 05/08/18 16:00 88 125/73 05/08/18 07:30 97.5 F L 78 20 139/78 05/07/18 16:00 80 122/63 05/07/18 07:02 98.0 F 72 20 122/69 05/07/18 02:24 18 05/07/18 02:16 98.6 F 68 18 132/81 05/07/18 00:07 98.2 F 89 17 122/70 96 05/06/18 23:10 91 H 17 128/71 98 05/06/18 19:30 98.0 F 89 17 125/62 99 05/06/18 16:52 97.7 F 94 H 18 136/77 95 Temp Pulse Resp BP Pulse Ox 97.9 F 64 20 95/63 L 96 05/19/18 07:00 05/19/18 07:00 05/19/18 07:00 05/19/18 07:00 05/07/18 00:07 DSM 5 Symptoms Update: Patient is a single 57 year WF with a history of Schizoaffective Disorder, multiple prior admissions--most recently 10/2013 at [facility], under the care of Dr. Fletcher, prescribed psychiatric medications of cogentin 0.5 mg q12 hours, Flovoxamine 100mg AM and PM, Ritalin 10mg 2x daily and Xanax prn who was was BIB sister for worsening of depression and anxiety symptoms for 1-2 months. According to the ER record, sister noticed that patient has been vegetating at home, staying in bed and not attending to food shopping, housekeeping or her grooming/hygiene since the middle of summer. Sister also noticed that patient has been more forgetful, repetitive and unfocused. During my interview this morning, patient seems well oriented to month, year, location and circumstances. She confirmed that she has been depressed and anxious. Endorses symptoms of increased crying spells, low energy, feeling overwhelmed, [place], hopeless and helpless. Sleep has also been poor. Patient denies any new stress and indicates that she has been compliant with her psychiatric medications though sister has doubts about this since patient has been more forgetful. Patient denies any history of suicide attempts or ideations. ER report also indicates that per sister, things started going down hill when their mother January 2015. Patient also lost a pet dog which was a hard loss for her. Sister suspects that patient has not been taking her medication due to lapses in her memory. pt was seen in the hallway, patient took shower, wears bright call her clothing, patient seems to be less depressed, patient appears to be more optimistic, discharge plan was discussed with the patient, patient deemed to be ready for discharge tomorrow. We'll notify family. as per staff pt is more visible in the unit now, patient participate in unit activities, attends groups, no agitation or aggression. so far patient tolerates medications well, no side effects observed or reported, aims 0, no EPS. Impression: as pe h/o schizoaffective disorder Medication Change: Yes (Adjusted yesterday) Medical Record Reviewed: Yes Mental Status Examination - Cognitive Function Orientation: Person, Place, Situation Attention: Poor (improvement) Concentration: Poor (improvement) Fund of Knowledge: WNL - Mood Mood: Depressed ("I feel better"), Anxious (less anxious) - Affect Affect: Constricted (but more reactive today) - Speech Speech: Appropriate - Formal Thought Process Formal Thought Process: No Impairment - Suicidal Ideation Suicidal Ideation: No - Homicidal Ideation Homicidal Ideation: No Goal/Treatment Plan - Goal/Treatment Plan Need for Continued Stay: Remain at risks for inpatient hospitalization, Severe depression anxiety, Discharge may exacerbated symptoms, Severe functional impairment Progress Toward Problem(s) and Goals/Treatment Plan: Milieu/structure/supportive therapy Medical consult appreciated, see medical team note for more detailed info SW consultation for discharge plan and social issues Med management prozac 40mg po daily for depression/anxiety xanax 0.5 mg 3 times a day scheduled seroquel 100mg po hs for mood stabilization and disorganized thoughts contacted, collaterals obtained 05/13/2018 Family involvement Follow up on labs Will monitor closely Pt was educated about risk/benefits and alternatives of medications, coping strategies (safety plan, suicide prevention), relapse prevention, importance of follow up with psychiatrist and therapist, stay away from drugs/alcohol/smoking Estimated Date of D/C: 05/20/18
[2018-05-20 07:27] VITALS: TEMP 97.4
--- NOTE | 2018-05-20 15:14 | PCM.PYCHDC ---
Mental Status Examination - Mental Status Examination Orientation: Person, Place, Situation, Time Memory: Intact Mood: Neutral Affect: Broad (mood congruent) Speech: Appropriate Attention: WNL Concentration: WNL Association: WNL Fund of Knowledge: WNL Formal Thought Process: No Impairment Description of patient's judgement and insight: Pt has improved insight into mental and medical illness, pt was compliant with medications and unit rules and regulations, pt was going to groups, was calm, cooperative, socially appropriate, no behavioral incidents, no agitation, no aggression. Psychotic Thoughts and Behaviors: Pt denied v/a/t hallucinations, denied paranoid ideations, pt does not appear to be psychotic, and thought process is goal directed. Suicidal Ideation: No Current Homicidal Ideation?: No Plan: pt adamantly denied thoughts of harming self or others denied intent or plan. Discharge Summary - Discharge Note Reason for Hospitalization: anxiety, depression, disorganized thoughts and behavior, inability to take care of herself Psychiatric History (includes Medical, Family, Personal Hx): long history of mental illness most likely schizophrenia Laboratory Data: 05/06/18 17:23 05/08/18 07:00 Lab Results 05/08/18 07:00: Free T4 1.07, TSH 3rd Generation 0.49 05/08/18 07:00: Hemoglobin A1c 6.5 05/08/18 07:00: Sodium 140, Potassium 4.0, Chloride 107, Carbon Dioxide 27, Anion Gap 11, BUN 21, Creatinine 0.6 L, Est GFR ( Amer) > 60, Est GFR (Non-Af Amer) > 60, Random Glucose 127 H, Calcium 9.2, Total Bilirubin 0.4, AST 17, ALT 26, Alkaline Phosphatase 74, Total Protein 6.9, Albumin 3.9, Globulin 2.9, Albumin/Globulin Ratio 1.3 05/07/18 07:00: Fasting Glucose 123 H, Triglycerides 122, Cholesterol 206 H, LDL Cholesterol Direct 125, HDL Cholesterol 50 05/07/18 07:00: RPR Nonreactive 05/07/18 07:00: Free T4 1.16, TSH 3rd Generation 0.82 05/06/18 18:47: Urine Color Light yellow, Urine Appearance Clear, Urine pH 6.0, Ur Specific [place] 1.025, Urine Protein 30 H, Urine Glucose (UA) Negative, Urine Ketones Trace H, Urine Blood Negative, Urine Nitrate Negative, Urine Bilirubin Negative, Urine Urobilinogen 0.2, Ur Leukocyte Esterase Small H, Urine RBC Negative, Urine WBC 1 - 3, Ur Epithelial Cells 0 - 2, Urine Bacteria Neg 05/06/18 18:47: Urine Opiates Screen Negative, Urine Methadone Screen Negative, Ur Barbiturates Screen Negative, Ur Phencyclidine Scrn Negative, Ur Amphetamines Screen Negative, U Benzodiazepines Scrn Negative, U Oth Cocaine Metabols Negative, U Cannabinoids Screen Negative 05/06/18 17:23: WBC 8.1, RBC 5.00, Hgb 14.3, Hct 40.7, MCV 81.4, MCH 28.6, MCHC 35.1, RDW 12.6, Plt Count 202, MPV 9.7, Gran % 73.9 H, Lymph % (Auto) 18.2 L, [place] % (Auto) 6.1 H, Eos % (Auto) 1.6, Baso % (Auto) 0.2, Gran # 5.97, Lymph # (Auto) 1.5, [place] # (Auto) 0.5, Eos # (Auto) 0.1, Baso # (Auto) 0.02 05/06/18 17:23: Alcohol, Quantitative < 10 05/06/18 17:23: Sodium 141, Potassium 3.4 L, Chloride 106, Carbon Dioxide 22, Anion Gap 16, BUN 12, Creatinine 0.7, Est GFR ( Amer) > 60, Est GFR (Non- Af Amer) > 60, Random Glucose 125 H, Calcium 10.0, Total Bilirubin 0.5, AST 22, ALT 26, Alkaline Phosphatase 88, Total Protein 8.0, Albumin 4.6, Globulin 3.4, Albumin/Globulin Ratio 1.4 05/06/18 17:23: Salicylates < 1 L, Acetaminophen < 10.0 L Vital Signs Temp Pulse Resp BP Pulse Ox 05/20/18 07:26 97.4 F L 67 20 109/60 05/19/18 16:00 76 102/45 L 05/19/18 07:00 97.9 F 64 20 95/63 L 05/18/18 16:00 80 119/72 05/18/18 07:15 97.4 F L 78 20 117/62 05/17/18 16:00 77 116/49 L 05/17/18 07:00 97.7 F 65 16 100/53 L 05/16/18 16:00 72 107/58 L 05/16/18 07:00 97.8 F 91 H 20 121/74 05/15/18 07:15 97.3 F L 67 20 112/58 L 05/14/18 15:00 97.2 F L 81 16 109/60 05/14/18 07:15 97.2 F L 67 20 128/65 05/13/18 16:00 82 118/60 05/13/18 07:18 97.2 F L 64 20 104/49 L 05/12/18 16:00 78 123/59 L 05/12/18 07:21 97.1 F L 71 20 117/54 L 05/11/18 16:00 85 128/62 05/11/18 07:28 98.1 F 72 20 128/56 L 05/10/18 16:00 75 105/53 L 05/10/18 07:25 97.7 F 65 20 110/63 05/09/18 15:49 79 118/68 05/09/18 07:00 97.6 F 66 20 117/68 05/09/18 06:51 97.6 F 66 20 117/68 05/08/18 16:00 88 125/73 05/08/18 07:30 97.5 F L 78 20 139/78 05/07/18 16:00 80 122/63 05/07/18 07:02 98.0 F 72 20 122/69 05/07/18 02:24 18 05/07/18 02:16 98.6 F 68 18 132/81 05/07/18 00:07 98.2 F 89 17 122/70 96 05/06/18 23:10 91 H 17 128/71 98 05/06/18 19:30 98.0 F 89 17 125/62 99 05/06/18 16:52 97.7 F 94 H 18 136/77 95 Consultations:: List each consultation separately and include: 1. Reason for request. 2. Findings. 3. Follow-up Consultations: pt was seen by medical team consult appreciated Please see medical team notes for more detailed information Summary of Hospital Course include:: 1. Description of specific treatment plan utilized for patients during their course of treatmen. 2. Summarize the time- course for resolution of acute symptoms and/or regressed behaviors. 3. Describe issues identified and worked on during hospitalization. 4. Describe medication utilized. 5. Describe medical problems identified and treated. 6. Reassessment of suicide risk Summary of Hospital Course: Patient is a single 57 year WF with a history of Schizoaffective Disorder, multiple prior admissions--most recently 10/2013 at [facility], under the care of Dr. Fletcher, prescribed psychiatric medications of cogentin 0.5 mg q12 hours, Flovoxamine 100mg AM and PM, Ritalin 10mg 2x daily and Xanax prn who was was BIB sister for worsening of depression and anxiety symptoms for 1-2 months. According to the ER record, sister noticed that patient has been vegetating at home, staying in bed and not attending to food shopping, housekeeping or her gr ooming/hygiene since the middle of summer. Sister also noticed that patient has been more forgetful, repetitive and unfocused. During my interview this morning, patient seems well oriented to month, year, location and circumstances. She confirmed that she has been depressed and anxious. Endorses symptoms of increased crying spells, low energy, feeling overwhelmed, [place], hopeless and helpless. Sleep has also been poor. Patient denies any new stressors and indicates that she has been compliant with her psychiatric medications though sister has doubts about this since patient has been more forgetful. Patient denies any history of suicide attempts or ideations. ER report also indicates that per sister, things started going down hill when their mother January 2015. Patient also lost a pet dog which was a hard loss for her. Sister suspects that patient has not been taking her medication due to lapses in her memory. please see initial assessment for more detailed information. Over the course of this hospitalization patient was stabilized on the following medication: Luvox was weaned off Prozac was started and slowly titrated to 40 mg daily for depression and anxiety Seroquel was given at the night time and slowly titrated to 100 mg at the nighttime for mood stabilization and disorganized thoughts Patient was continued on Xanax for anxiety Patient tolerated medications well, no side effects observed or reported, aims 0, no EPS. Patient sister Jose Eduardo was involved in to the patient care, treatment plan as well as discharge planning was discussed in details, this bond writer as well as social media marketer had phone conference call with his sister. Please see social media marketer notes for more detailed information. This bond writer had prolonged conversation with patient private psychiatrist , please see notes for more detailed information. patient was offered to go to detention, but patient declined that offer. Over the course of this hospitalization patient improved significantly, mood improved, patient was more visible in the unit, hygiene improved, patient was attending groups,, had therapeutic milieu. Patient reached maximum effect from this hospitalization and team ready to be discharged. Over the course of this hospitalization patient did not have aggression did not have agitation patient was pleasant, corporative, socially appropriate. At the time of the discharge pt denied been depressed, denied thoughts of harming self or others, denied psychotic symptoms, and pt does not appeared to be psychotic, denied been anxious, pt is not in imminent danger to self or others, pt will be followed up by Asher Long, as per COLT patient will be followed up in the community around Wednesday or Wednesday of next week. , information about follow up appointment, time and address provided to the pt, it is patient responsibility to follow up with outpatient clinic, PMD as well as specialists . In case pt will need to obtain results of studies pending at discharge pt was provided with contact information of Psychiatric Inpatient unit [phone] as well as Medical Record Department [phone]. pt was provided with prescriptions for all of medications (please see medication reconciliation form) Pt was educated about safety plan in case of worsening of symptoms or in case of suicidal or homicidal ideation call 911 or go to the nearest ER, also was educated to take meds as prescribed and stay away from drugs, pt verbalized understanding. - Diagnosis (1) Major depression Current Visit: Yes Status: Chronic Priority: High (2) Psychosis Current Visit: Yes Status: Chronic Priority: High - Final Diagnosis (DSM 5) Condition upon Discharge: IMPROVED DSM 5: as per pt most likely has schizophrenia Disposition: HOME/ ROUTINE Follow-up Treatment Plan: At the time of the discharge pt denied been depressed, denied thoughts of harming self or others, denied psychotic symptoms, and pt does not appeared to be psychotic, denied been anxious, pt is not in imminent danger to self or others, pt will be followed up by Asher Long, as per COLT patient will be followed up in the community around Wednesday or Wednesday of next week. , information about follow up appointment, time and address provided to the pt, it is patient responsibility to follow up with outpatient clinic, PMD as well as specialists . In case pt will need to obtain results of studies pending at discharge pt was provided with contact information of Psychiatric Inpatient unit [phone] as well as Medical Record Department [phone]. pt was provided with prescriptions for all of medications (please see medication reconciliation form) Pt was educated about safety plan in case of worsening of symptoms or in case of suicidal or homicidal ideation call 911 or go to the nearest ER, also was edu cated to take meds as prescribed and stay away from drugs, pt verbalized understanding. Prescriptions/Medication Reconciliation: Alprazolam [Xanax] 0.5 mg PO BID #30 tab Fluoxetine HCl [Prozac] 40 mg PO DAILY #14 capsule Hydrocortisone 1% Oint [Cortizone 1% Oint] 1 gm TOP BID #1 tube QUEtiapine [Seroquel] 100 mg PO HS #14 tab - Smoking Cessation Smoking Cessation Medication prescribed: No Reason for not providing: patient does not smoke - Antipsychotic Medications Pt discharged on 2 or more routine antipsychotic medications: No
[2018-05-20 16:03] VITALS: BP 116/55; PULSE 84
== END 2018-05-20 16:57 | disposition home or self-care (01) | DRG 881 ==
LOC: ED 16:26 → ERH 21:29 → PSYC 05-07 00:06
PROVIDERS: ADMIT Psychologist; ATTEND Psychiatry & Neurology Psychiatry
DX: F32.9 Major depressive disorder, single episode, unspecified (principal); N39.0 Urinary tract infection, site not specified; F25.9 Schizoaffective disorder, unspecified; F41.9 Anxiety disorder, unspecified; E55.9 Vitamin D deficiency, unspecified; E87.6 Hypokalemia; K29.70 Gastritis, unspecified, without bleeding; M15.9 Polyosteoarthritis, unspecified

== ENCOUNTER 2018-10-14 13:43 | Outpatient (CLI) | payer MEDICARE, OTHER | END 2018-10-14 13:44 | disposition home or self-care (01) | LOC: RAD 13:43 ==